=== PATIENT | female | born 1985 | race Two or more races ===

== ENCOUNTER 2017-07-16 18:24 | Emergency (ER) | payer OTHER | END 2017-07-16 20:00 | disposition home or self-care (01) | LOC: M ED 18:24 | DX: K52.9 Noninfective gastroenteritis and colitis, unspecified (principal); H69.90 Unspecified Eustachian tube disorder, unspecified ear; F32.9 Major depressive disorder, single episode, unspecified; F17.200 Nicotine dependence, unspecified, uncomplicated; Z79.899 Other long term (current) drug therapy; Z88.5 Allergy status to narcotic agent | CPT/HCPCS: 99283 ==

== ENCOUNTER → 2017-11-22 | Outpatient (REF) | payer OTHER ==
[2017-11-22 20:01] LABS: CHLAMYDIA DNA AMPLIFICATION NEGATIVE (NEGATIVE); GC DNA AMPLIFICATION NEGATIVE (NEGATIVE)
[2017-11-26 14:16] LABS: HPV HYBRID CAPTURE II Negative (Negative)
== END ==
LOC: M LAB REF 16:54
DX: Z11.3 Encounter for screening for infections with a predominantly sexual mode of transmission (principal)

== ENCOUNTER → 2017-12-19 | Outpatient (CLI) | payer OTHER | LOC: M RAD 14:56 | DX: N88.8 Other specified noninflammatory disorders of cervix uteri (principal); R10.2 Pelvic and perineal pain | CPT/HCPCS: 76856 ==

== ENCOUNTER → 2018-06-06 | Outpatient (CLI) | payer OTHER ==
[~2018-06-06] MED LIST: AUGM875T28 PO; BUPR300T34; SUBO8MIS; ZOFR4TAB14 PO
--- NOTE | 2018-06-06 17:39 | REP ---
Clinical: Pelvic pain. Ovarian cyst. Comparison: 12/19/2017 Technique: Transabdominal pelvic ultrasound followed by transvaginal examination for better evaluation of the endometrium and adnexa with color Doppler evaluation of the ovaries. Findings: Bladder is collapsed. Heterogeneous anteverted uterus measures 7.4 x 3.8 x 4.9 cm and includes 2.4 cm right anterior subserosal fibroid as well as subcentimeter Nabothian cysts. The endometrial complex measures 12.5 mm thickness. Bilateral ovaries are normal in vascularity without evidence for torsion. Right ovary measures 5.3 x 3.0 x 2.8 cm with 3.8 cm simple cyst and multiple follicles ; R I = 0.67 . Left ovary measures 4.2 x 3.2 x 6.0 cm with 4.2 cm and 2.4 cm cysts and multiple follicles ; R I = 0.71 . Small amount of pelvic free fluid is nonspecific and likely physiologic. No adnexal mass lesion identified. Impression: 1. 2.4 cm subserosal uterine fibroid unchanged from prior examination . 2. Prominent bilateral ovarian cysts and similar in appearance to prior examination although possibly minimally enlarged. As noted on prior examination chronic hydrosalpinx is within differential diagnosis. Contrast enhanced CT of the abdomen and pelvis or pelvic MRI may be warranted if follow-up pelvic ultrasound in 4-6 weeks is unchanged. Electronically Signed by Heber Rey MD 06/06/2018 05:30 P
== END ==
LOC: M RAD 14:18
PROVIDERS: ATTEND Physician Assistant Medical
DX: N83.201 Unspecified ovarian cyst, right side (principal); N83.202 Unspecified ovarian cyst, left side; D25.2 Subserosal leiomyoma of uterus

== ENCOUNTER 2019-02-10 18:54 | Emergency (ER) | payer OTHER ==
[~2019-02-10] VITALS: Ht 162.6 cm; Wt 84.1 kg
[2019-02-10 18:54] VITALS: BP 124/75
[~2019-02-10 18:54] MED LIST changes: -BUPR300T34; +BUPR300T92
[2019-02-10] MEDS ORDERED: BUPR8SUB (19:55)
[2019-02-10] MEDS ORDERED: CEFD1CAP8 (19:55)
[2019-02-10] MEDS ORDERED: ALL10TAB29 (19:55)
[2019-02-10] MEDS ORDERED: PSEUDOEPHEDRINE 30 MG TAB PO STA (20:04)
[2019-02-10] MEDS ORDERED: PSEU120T19 PO (20:10)
[2019-02-10] MEDS ORDERED: FLON1SPR NARES (20:10)
[2019-02-10] MEDS ORDERED: IBUP-1022 PO (20:10)
[2019-02-10] MEDS ORDERED: IBUPROFEN 600 MG TAB PO ONE (20:15)
== END 2019-02-10 20:26 | disposition home or self-care (01) ==
LOC: M ED 18:54
DX: H65.01 Acute serous otitis media, right ear (principal); J06.9 Acute upper respiratory infection, unspecified; Z88.5 Allergy status to narcotic agent; Z79.899 Other long term (current) drug therapy; Z79.2 Long term (current) use of antibiotics

== ENCOUNTER → 2019-05-26 | Outpatient (REF) | payer OTHER ==
[~2019-05-26] MED LIST changes: +ALL10TAB29; +BUPR300T34; -BUPR300T92; +BUPR8SUB; +CEFD1CAP8; +FLON1SPR NARES; +IBUP-1022 PO; +PSEU120T19 PO
== END ==
LOC: M LAB REF 19:31
PROVIDERS: ATTEND Physician Assistant Medical
DX: L02.91 Cutaneous abscess, unspecified (principal)

== ENCOUNTER 2021-02-08 17:19 | Emergency (ER) | payer OTHER ==
[~2021-02-08] VITALS: Ht 162.6 cm; Wt 71.8 kg
[2021-02-08 17:19] VITALS: BP 134/84
[~2021-02-08 17:19] MED LIST changes: -ALL10TAB29; -BUPR300T34; +BUPR300T92; +CETI-24
== END 2021-02-09 05:05 | disposition left against medical advice (07) ==
LOC: M ED 17:19
DX: Z53.21 Procedure and treatment not carried out due to patient leaving prior to being seen by health care provider (principal)

== ENCOUNTER → 2021-02-21 | Outpatient (CLI) | payer OTHER ==
--- NOTE | 2021-02-21 16:29 | REP ---
INDICATION: LOCAL INFECTION OF THE SKIN AND SUBCUTANEOUS TISSUE, UNSP. COMPARISON: Comparison right hand radiographs are from May 03, 2016. Comparison left hand radiographs are from November 13, 2014. TECHNIQUE: AP and lateral views of each hand are provided. Four views total. FINDINGS: AP and lateral views of each hand demonstrate diffuse soft tissue swelling dorsally over the metacarpals on the right extending along the proximal phalanges of all 5 digits. Joint spaces are preserved on the right. No fracture, opaque foreign body, or subluxation is noted on the right. On the left, there is a screw plate fixation device across the dorsal aspect of the 5th metacarpal. No acute bony abnormality is seen. There is dorsal soft tissue swelling over the metacarpals and extending into the digits. There is some soft tissue irregularity on the lateral film dorsally over the metacarpals which may reflect scarring. IMPRESSION: Diffuse soft tissue swelling. No soft tissue gas is seen. Patient is post open reduction internal fixation of 5th metacarpal fracture with a screw plate fixation device. No bony erosive change. <Electronically signed by Den Dickerson > 02/21/21 [id number]
--- NOTE | 2021-02-21 16:31 | REP ---
INDICATION: LOCAL INFECTION OF THE SKIN AND SUBCUTANEOUS TISSUE, UNSP. COMPARISON: Comparison left foot series February 04, 2011. TECHNIQUE: AP and lateral views of the left and AP and lateral views of the right foot are provided. Four views total. FINDINGS: AP and lateral views of the left foot demonstrate soft tissue swelling dorsally over the forefoot. Joint spaces are preserved. Overall mineralization pattern is normal. No soft tissue gas or foreign body is seen. No fracture is noted. There is a small left-sided Achilles calcaneal spur. AP and lateral views of the right foot demonstrate mild soft tissue swelling over the midfoot and forefoot. There is Achilles calcaneal spurring on the right. Joint spaces are preserved. No soft tissue gas is seen. IMPRESSION: Soft tissue swelling. Heel spurs. No acute bony abnormality.. <Electronically signed by Den Dickerson > 02/21/21 [id number]
[2021-02-21 18:09] LABS: BASO % 0.6 % (0.0-1.0); EOS # 0.2 10^3/uL (0.0-0.5); HEMATOCRIT 44.4 % (36.0-47.0); HEMOGLOBIN 14.4 g/dl (12.0-15.5); LYMPH # 1.9 10^3/uL (1.5-5.0); LYMPH % 30.3 % (24.0-44.0); MEAN CORPUSCULAR HEMOGLOBIN 30.3 pg (27.0-33.0); MEAN CORPUSCULAR HGB CONC 32.4 g/dl (32.0-36.5); MEAN CORPUSCULAR VOLUME 93.5 fl (80.0-96.0); MONO # 0.4 10^3/uL (0.0-0.8); MONO % 6.4 % (2.0-8.0); NEUTROPHILS # 3.8 10^3/uL (1.5-8.5); NEUTROPHILS % 59.4 % (36.0-66.0); PLATELET COUNT, AUTOMATED 327 10^3/uL (150-450); RED BLOOD COUNT 4.75 10^6/uL (4.00-5.40); WHITE BLOOD COUNT 6.4 10^3/uL (4.0-10.0)
[2021-02-21 18:40] LABS: C REACTIVE PROTEIN QUANTITATIV 0.82 MG/DL (0.00-0.30); RHEUMATOID FACTOR QUANT < 10.0 IU/ML (<15.0)
[2021-02-21 20:38] LABS: ERYTHROCYTE SEDIMENTATION RATE 13 mm/hr (0-20)
== END ==
LOC: M PLAIMG 14:34 → M PLALAB 14:34
PROVIDERS: ATTEND Internal Medicine Infectious Disease
DX: L08.9 Local infection of the skin and subcutaneous tissue, unspecified (principal); M79.89 Other specified soft tissue disorders; B18.2 Chronic viral hepatitis C; I73.00 Raynaud's syndrome without gangrene; M77.31 Calcaneal spur, right foot; M77.32 Calcaneal spur, left foot

== ENCOUNTER 2021-05-03 11:36 | Emergency (ER) | payer OTHER ==
[~2021-05-03] VITALS: Ht 162.6 cm; Wt 68.6 kg
--- OUTSIDE RECORDS SUMMARY | 2021-05-03 11:44 | CCD ---
Author Author [facility] Organization [facility] Address Unknown Phone Unavailable Care Team Providers Care Photographer Scientific Name Role Phone Dimitrios Sparks Unavailable PROBLEMS Type Condition ICD9-CM Code [id number] Code Onset Dates Condition S tatus W/U Status Risk SNOMED Code Notes Problem Open wound of right thumb without damage to nail , initial encounter S61.001A Active confirmed 614362747 Problem Chronic hepatitis C without hepatic coma B18.2 Active confirmed 773360593 Problem Bilateral swelling of feet M79.89 Active confirmed 908803111 Problem Bilateral hand swelling M79.89 Active confirmed 315166316 Problem 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 Acti ve confirmed 822365032 Problem Marijuana use F12.90 Active confirmed 350264 004 Problem Depressive disorder F32.9 Active confirmed 08381073 Problem Raynaud's disease without gangrene I73.00 Activ e confirmed 730608296 ALLERGIES Allergen (clinical drug ingredient) Drug/Non Drug Allergy do cumented on EMR Reaction Allergy Type Onset Date Status codeine Codeine Sulfate([facility] Code:[address]-54) Unknown Drug Al lergy Active ENCOUNTERS from 1984 to 2021-02-22 Encounter Location Date Provider Diagnosis [facility] [place] [address] [facility] [phone] [place] [address] Feb, Dimitrios Sparks Chronic hepatitis C without hepatic coma B18.2 ; Raynaud's disease without gangrene I73.00 ; 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 ; Depressive disorder F32.9 ; Marijuana use F12.90 ; Toe infection L08.9 ; Tobacco abuse Z72.0 and Bilateral swelling of feet M79.89 IMMUNIZATIONS No Information SOCIAL HISTORY Tobacco Use: Social History Observation Description Date Details (start date - stop date) Current Smoker Sex Assigned At : Social History Observation Description Sex Assigned At Unknown Sexual Hx: Question Answer Notes Had sex in the last 12 months (vaginal, oral, or anal)? Yes LMP: 10/2019 Alcohol Screening: Question Answer Notes Did you have a drink containing alcohol in the past year? No Points 0 Interpretation Negative Tobacco Use: Question Answer Notes Are you a: current smoker Patient counseled on the dangers of tobacco use and urged to quit: 09/10/2016 How many cigarettes a day do you smoke? 11-20 Are you interested in quitting? Thinking about quitting Counseled the patient on smoking cessation, education provid ed 09/10/2016 REASON FOR REFERRAL No Information VITAL SIGNS Weight 156 lbs Feb, Weight-kg 70.76 kg Feb, Height 64 in Feb, BMI 26.77 kg/m2 Feb, Heart Rate 82 /min Feb, Respiratory Rate 18 /min Feb, Temperature 97.8 degrees Fahrenheit Feb, Oximetry 97% Feb, Blood pressure systolic 122 mm Hg Feb, Blood pressure diastolic 74 mm Hg Feb, MEDICATIONS Medication SIG (Take, Route, Frequency, Duration) Notes Start Da te End Date Status Subutex Active buPROPion HCl ER (XL) 150 MG TAKE ONE TABLET BY MOUTH ONCE DAILY Oral for 30 Active Epclusa 400-100 MG 1 tablet Orally Once a day for 28 day(s) Feb, Active PROCEDURES No Information RESULTS Component Value Reference Range C REACTIVE PROTEIN QUANTITATIV (At [facility] L ab) Reviewed date:02/21/2021 18:55:08 Interpretation: Performing Lab:[facility] [address] [place] [address] , ,[place] [address] C REACTIVE PROTEIN QUANTITATIV 0.82 0.00-0.30 RHEUMATOID FACTOR QUANT Reviewed date:02/21/2021 18:55:08 Interpretation: Performing Lab:[facility] [address] [facility] [address] , ,[place] [address] RHEUMATOID FACTOR QUANT < 10.0 <15.0 [facility] Foot, (Ap\Lat) Reviewed date:02/21/2021 18:55:08 Interpretation: Performing Lab:[facility],[address] ,[place] [address] [facility] Hand,(Pa\Lat) Reviewed date:02/21/2021 18:55:08 Interpretation: Performing Lab:[facility] [address] ,[place] [address] ERYTHROCYTE SEDIMENTATION RATE Reviewed date:02/22/2021 12:44:15 Interpretation: Performing Lab:[facility] [address] [facility] [address] , ,[place] [address] ERYTHROCYTE SEDIMENTATION RATE 13 0-[address] Reviewed date:02/22/2021 12:44:15 Interpretation: Performing Lab:[facility] [address] [facility] [address] , ,[place] [address] CBC with Auto Differential Reviewed date:02/22/2021 12:44:15 Interpretation: Performing Lab:[facility] [address] [facility] [address] , ,[place] [address] WHITE BLOOD COUNT 6.4 4.0-10.0 RED BLOOD COUNT 4.75 4.00-5.40 HEMOGLOBIN 14.4 12.0-15.5 HEMATOCRIT 44.4 36.0-47.0 MEAN CORPUSCULAR VOLUME 93.5 80.0-96.0 MEAN CORPUSCULAR HEMOGLOBIN 30.3 27.0-33.0 MEAN CORPUSCULAR HGB CONC 32.4 32.0-36.5 RED CELL DISTRIBUTION WIDTH 13.2 11.5-14.5 PLATELET COUNT, AUTOMATED 327 150-450 NEUTROPHILS % 59.4 36.0-66.0 LYMPH % 30.3 24.0-44.0 MONO % 6.4 2.0-8.0 EOS % 3.0 0.0-3.0 BASO % 0.6 0.0-1.0 IMMATURE GRANULOCYTE % 0.3 0-3.0 NUCLEATED RED BLOOD CELL % 0.0 0-0 NEUTROPHILS # 3.8 1.5-8.5 LYMPH # 1.9 1.5-5.0 MONO # 0.4 0.0-0.8 EOS # 0.2 0.0-0.5 BASO # 0.0 0.0-0.2 REASON FOR VISIT follow up MEDICAL (GENERAL) HISTORY Type Description Date Medical History depression Medical History opiate abuse (stopped Apr 2015) Medical History Hepatitis C positive Surgical History ovarian cyst 2009 Surgical History L hand surgical fixation 2013 Hospitalization History No Hospitalization history informati on Goals Section No Information Health Concerns No Information MEDICAL EQUIPMENT No Information MENTAL STATUS No Information FUNCTIONAL STATUS No Information ASSESSMENTS Encounter Date Diagnosis Assessment Notes Treatment Notes Treatm ent Clinical Notes Feb, Chronic hepatitis C without hepatic coma (ICD-10 - B18.2) Not vaccinated for HepA/B ? Or unsure Avoid alcohol, tylenol and iron takes motrin for pain Patient will be treated with Epclusa 1 tablet daily for 12 weeks she will take at bedtime she understands side effect include nausea headache fatigue. She will take with or without meals. 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 She has bilateral hand and feet swelling with ulcerations. 4 years ago she had an ulcer on the left second thumb and lost part of the thumb. Feb, Intravenous drug abuse in remission (ICD-10 - F1 9.11) Feb, Depressive disorder (ICD-10 - F32.9) She sees community [facility] , she will do a walkin for counseling Feb, Marijuana use (ICD-10 - F12.90) Feb, Toe infection (ICD-10 - L08.9) Rule out osteomyelitis of the right second toe x-ray was obtained culture wound will be called in 48 hours if she needs an antibiotic., Feb, Tobacco abuse (ICD-10 - Z72.0) Smokes a pack a day last year about 2 days sometimes more. She was encouraged to cut back on smoking due to significant Raynaud's/Buerger's disease. Feb, Bilateral swelling of feet (ICD-10 - M79.89) PLAN OF TREATMENT Medication Medication Name Sig Start Date Stop Date Epclusa 400-100 MG 1 tablet Orally Once a day for 28 day(s) 07 S 2020 Treatment Notes Assessment Notes Clinical Notes Chronic hepatitis C without hepatic coma Not vaccinated for HepA/B ? Or unsureAvoid alcohol, tylenol and iron takes motrin for painPatient will be treated with Epclusa 1 tablet daily for 12 weeks she will take at bedtime she understands side effect include nausea headache fatigue. She will take with or without meals.[facility] report was obtained there was no documentation of previous vaccination Raynaud's disease without gangrene Patie nt has a diagnosis of Raynaud's versus Buerger's syndrome. She has bilateral hand and feet swelling with ulcerations. 4 years ago she had an ulcer on the left second thumb and lost part of the thumb. Depressive disorder She sees [facility] , she will do a walkin for counseling Toe infection Rule out osteomyelit is of the right second toe x-ray was obtained culture wound will be called in 48 hours if she needs an antibiotic., Tobacco abuse Smokes a pack a day last year about 2 days sometimes more. She was encouraged to cut back on smoking due to significant Raynaud's/Buerger's disease. Treatment Notes Test Name Order Date HEPATITIS C QUANT BY PCR 2021-02-21 HEPATITIS C GENOTYPE 2021-02-21 HEPATITIS C FIBROSURE [id number] 2021-02-21 RICHARD TITER & PATTERN 2021-02-21 HEPATITIS B CORE ANTIBODY IGG 2021-02-21 CYCLIC CITRULLINATED PEPTIDE 2021-02-21 HEPATITIS A IgG 2021-02-21 Next Appt Details 4 Weeks Reason: Provider Name:Radhajl Sparks, 5 01:30:00 PM, [facility] [facility], , [place], [address], Insurance Providers Payer Name Payer Address Payer Phone Insured Name Patient Relati onship to Insured Coverage Start Date Coverage End Date [facility] [address] [facility] [phone] [place] self
--- OUTSIDE RECORDS SUMMARY | 2021-05-03 11:44 | CCD ---
Author Author [facility] Organization [facility] Address Unknown Phone Unavailable Care Team Providers Care Central Service Supply Distributor Name Role Phone Leonidas Giron MD Unavailable Unavailable Leonidas Giron MD Unavailable Unavailable Leonidas Giron MD Unavailable Unavailable Leonidas Giron MD Unavailable Unavailable Leonidas Giron MD Unavailable Unavailable Leonidas Giron MD Unavailable Unavailable Leonidas Giron MD Unavailable Unavailable Leonidas Giron MD Unavailable Unavailable Leonidas Giron MD Unavailable Unavailable Leonidas Giron MD Unavailable Unavailable Leonidas Giron MD Unavailable Unavailable Leonidas Giron MD Unavailable Unavailable Leonidas Giron MD Unavailable Unavailable Leonidas Giron MD Unavailable Unavailable Leonidas Giron MD Unavailable Unavailable Leonidas Giron MD Unavailable Unavailable Leonidas Giron MD Unavailable Unavailable Leonidas Giron MD Unavailable Unavailable Leonidas Giron MD Unavailable Unavailable Leonidas Giron MD Unavailable Unavailable Leonidas Giron MD Unavailable Unavailable Leonidas Giron MD Unavailable Unavailable Leonidas Giron MD Unavailable Unavailable Leonidas Giron MD Unavailable Unavailable Leonidas Giron MD Unavailable Unavailable Leonidas Giron MD Unavailable Unavailable Leonidas Giron MD Unavailable Unavailable Leonidas Giron MD Unavailable Unavailable Leonidas Giron MD Unavailable Unavailable Leonidas Giron MD Unavailable Unavailable Leonidas Giron MD Unavailable Unavailable Leonidas Giron MD Unavailable Unavailable Leonidas Giron MD Unavailable Unavailable Leonidas Giron MD Unavailable Unavailable Leonidas Giron MD Unavailable Unavailable Leonidas Giron MD Unavailable Unavailable Leonidas Giron MD Unavailable Unavailable Leonidas Giron MD Unavailable Unavailable Leonidas Giron MD Unavailable Unavailable Leonidas Giron MD Unavailable Unavailable Leonidas Giron MD Unavailable Unavailable Leonidas Giron MD Unavailable Unavailable Leonidas Giron MD Unavailable Unavailable GironLeonidas MD Unavailable Unavailable GironLeonidas MD Unavailable Unavailable GironLeonidas MD Unavailable Unavailable Giron, Leonidas Granados MD Unavailable Unavailable Giron, Leonidas Granados MD Unavailable Unavailable GironLeonidas MD Unavailable Unavailable GironLeonidsa MD Unavailable Unavailable Leonidas Giron MD Unavailable Unavailable Leonidas Giron MD Unavailable Unavailable Leonidas Giron MD Unavailable Unavailable GironLeonidas MD Unavailable Unavailable GironLeonidas MD Unavailable Unavailable Giron, Leonidas Granados MD Unavailable Unavailable Giron, Leonidas Granados MD Unavailable Unavailable Giron, Leonidas Granados MD Unavailable Unavailable Giron, Leonidas Granados MD Unavailable Unavailable GironLeonidas MD Unavailable Unavailable Leonidas Giron MD Unavailable Unavailable Giron, Leonidas Granados MD Unavailable Unavailable GironLeonidas MD Unavailable Unavailable Giron, Leonidas Granados MD Unavailable Unavailable Giron, Leonidas Granados MD Unavailable Unavailable GironLeonidas MD Unavailable Unavailable Giron, Leonidas Granados MD Unavailable Unavailable Leonidas Giron MD Unavailable Unavailable Leonidas Giron MD Unavailable Unavailable Leonidas Giron MD Unavailable Unavailable Leonidas Giron MD Unavailable Unavailable Leonidas Giron MD Unavailable Unavailable GironLeonidas MD Unavailable Unavailable GironLeonidas MD Unavailable Unavailable GironLeonidas MD Unavailable Unavailable GironLeonidas MD Unavailable Unavailable Leonidas Giron MD Unavailable Unavailable Leonidas Giron MD Unavailable Unavailable Leonidas Giron MD Unavailable Unavailable Leonidas Giron MD Unavailable Unavailable Leonidas Giron MD Unavailable Unavailable Leonidas Giron MD Unavailable Unavailable Leonidas Giron MD Unavailable Unavailable Leonidas Giron MD Unavailable Unavailable Leonidas Giron MD Unavailable Unavailable Leonidas Giron MD Unavailable Unavailable Leonidas Giron MD Unavailable Unavailable Leonidas Giron MD Unavailable Unavailable Leonidas Giron MD Unavailable Unavailable Leonidas Giron MD Unavailable Unavailable GironLeonidas MD Unavailable Unavailable GironLeonidas MD Unavailable Unavailable GironLeonidas MD Unavailable Unavailable Emily, Katrina Unavailable Unavailable Emily, Katrina Unavailable Unavailable Emily, Katrina Unavailable Unavailable Emily, Katrina Unavailable Unavailable Emily, Katrina Unavailable Unavailable Emily, Katrina Unavailable Unavailable Emily, Katrina Unavailable Unavailable Emily, Katrina Unavailable Unavailable Emily, Katrina Unavailable Unavailable Emily, Katrina Unavailable Unavailable Emily, Katrina Unavailable Unavailable Emily, Katrina Unavailable Unavailable Emily, Katrina Unavailable Unavailable Emily, Katrina Unavailable Unavailable Emily, Katrina Unavailable Unavailable Emily, Katrina Unavailable Unavailable Emily, Katrina Unavailable Unavailable Emily, Katrina Unavailable Unavailable Emily, Katrina Unavailable Unavailable Emily, Katrina Unavailable Unavailable Emily, Katrina Unavailable Unavailable Emily, Katrina Unavailable Unavailable Emily, Katrina Unavailable Unavailable Emily, Katrina Unavailable Unavailable Emily, Katrina Unavailable Unavailable Emily, Katrina Unavailable Unavailable Emily, Katrina Unavailable Unavailable Jose A RODRIGUEZ MD Unavailable Unavailable Jose A RODRIGUEZ MD Unavailable Unavailable Jose A RODRIGUEZ MD Unavailable Unavailable Jose A RODRIGUEZ MD Unavailable Unavailable Jose A RODRIGUEZ MD Unavailable Unavailable Jose A RODRIGUEZ MD Unavailable Unavailable Jose A RODRIGUEZ MD Unavailable Unavailable Jose A RODRIGUEZ MD Unavailable Unavailable Jose A RODRIGUEZ MD Unavailable Unavailable Jose A RODRIGUEZ MD Unavailable Unavailable Jose A RODRIGUEZ MD Unavailable Unavailable Jose A RODRIGUEZ MD Unavailable Unavailable Jose A RODRIGUEZ MD Unavailable Unavailable Jose A RODRIGUEZ MD Unavailable Unavailable Jose A RODRIGUEZ MD Unavailable Unavailable Jose A RODRIGUEZ MD Unavailable Unavailable Jose A RODRIGUEZ MD Unavailable Unavailable Jose A RODRIGUEZ MD Unavailable Unavailable Jose A RODRIGUEZ MD Unavailable Unavailable Jose A RODRIGUEZ MD Unavailable Unavailable Jose A RODRIGUEZ MD Unavailable Unavailable Jose A RODRIGUEZ MD Unavailable Unavailable Jose A RODRIGUEZ MD Unavailable Unavailable Jose A RODRIGUEZ MD Unavailable Unavailable Jose A RODRIGUEZ MD Unavailable Unavailable Jose A RODRIGUEZ MD Unavailable Unavailable Jose A RODRIGUEZ MD Unavailable Unavailable Jose A RODRIGUEZ MD Unavailable Unavailable Jose A RODRIGUEZ MD Unavailable Unavailable Jose A RODRIGUEZ MD Unavailable Unavailable Jose A RODRIGUEZ MD Unavailable Unavailable Jose A RODRIGUEZ MD Unavailable Unavailable Jose A RODRIGUEZ MD Unavailable Unavailable Jose A RODRIGUEZ MD Unavailable Unavailable Jose A RODRIGUEZ MD Unavailable Unavailable Jose A RODRIGUEZ MD Unavailable Unavailable Jose A RODRIGUEZ MD Unavailable Unavailable Jose A RODRIGUEZ MD Unavailable Unavailable Jose A RODRIGUEZ MD Unavailable Unavailable Jose A RODRIGUEZ MD Unavailable Unavailable Jose A RODRIGUEZ MD Unavailable Unavailable Jose A RODRIGUEZ MD Unavailable Unavailable Jose A RODRIGUEZ MD Unavailable Unavailable Jose A RODRIGUEZ MD Unavailable Unavailable Jose A RODRIGUEZ MD Unavailable Unavailable Jose A RODRIGUEZ MD Unavailable Unavailable MICHAEL, GNIETTE MD Unavailable Unavailable MICHAEL, GINETTE MD Unavailable Unavailable MICHAEL, GINETTE MD Unavailable Unavailable MICHAEL, GINETTE MD Unavailable Unavailable MICHAEL, GINETTE MD Unavailable Unavailable MICHAEL, GINETTE MD Unavailable Unavailable MICHAEL, GINETTE MD Unavailable Unavailable MICHAEL, GINETTE MD Unavailable Unavailable MICHAEL, GINETTE MD Unavailable Unavailable MICHAEL, GINETTE MD Unavailable Unavailable MICHAEL, GINETTE MD Unavailable Unavailable MICHAEL, GINETTE MD Unavailable Unavailable MICHAEL, GINETTE MD Unavailable Unavailable MICHAEL, GINETTE MD Unavailable Unavailable MICHAEL, GINETTE MD Unavailable Unavailable MICHAEL, GINETTE MD Unavailable Unavailable MICHAEL, GINETTE MD Unavailable Unavailable MICHAEL, GINETTE MD Unavailable Unavailable MICHAEL, GINETTE MD Unavailable Unavailable MICHAEL, GINETTE MD Unavailable Unavailable Re-disclosure Warning The records that you are about to access may contain information from federally-assisted alcohol or drug abuse programs. If such information is present, then the following federally mandated warning applies: This information has been disclosed to you from records protected by federal confidentiality rules (42 CFR part 2). The federal rules prohibit you from making any further disclosure of this information unless further disclosure is expressly permitted by the written consent of the person to whom it pertains or as otherwise permitted by 42 CFR part 2. A general authorization for the release of medical or other information is NOT sufficient for this purpose. The Federal rules restrict any use of the information to criminally investigate or prosecute any alcohol or drug abuse patient.The records that you are about to access may contain highly sensitive health information, the redisclosure of which is protected by Article 27-F of the [facility] Public Health law. If you continue you may have access to information: Regarding HIV / AIDS; Provided by facilities licensed or operated by the [facility] Office of Mental Health; or Provided by the [facility] Office for People With Developmental Disabilities. If such information is present, then the following [facility] mandated warning applies: This information has been disclosed to you from confidential records which are protected by state law. State law prohibits you from making any further disclosure of this information without the specific written consent of the person to whom it pertains, or as otherwise permitted by law. Any unauthorized further disclosure in violation of state law may result in a fine or [place] health [facility] sentence or both. A general authorization for the release of medical or other information is NOT sufficient authorization for further disc losure. Family History Family Member Name Family Member Gender Family Member Status Date o f Status Description Data Source(s) Unknown Unknown Problem [facility] ([facility], ) Encounters Encounter Providers Location Date Indications Data Source(s ) Outpatient Attender: ERIN RODRIGUEZ MD 03/28/2021 11:15: 00 AM EDT [facility] Alysa Diaz MD: [address] [place] [address], Ph. Attender: Alysa Diaz [facility] Medical 03/08/2021 12:00:00 AM EDT [place] ([facility]) Unknown [address] [facility] [id number] 02/28/2021 12:00:00 AM EDT eCW1 ([facility]) Outpatient [address] [facility] [id number] 02/21/2021 12:00:00 AM EDT eCW1 ([facility]) Unknown [address] [facility] [address] [address] 01/10/2021 12:00:00 AM EDT eCW1 ([facility]) Unknown [address] [facility] [address] [id number] 12/27/2020 12:00:00 AM EDT eCW1 ([facility]) Unknown [address] [facility] [address] [address] 12/06/2020 12:00:00 AM EDT eCW1 ([facility]) Darwin Giron MD: [address] [place] [address], Ph. Attender: Darwin Giron [facility] 11/10/2020 12:00:00 AM EDT JAYLA ([facility]) Darwin Giron MD: [address] [place] [address], Ph. Attender: Darwin Giron [facility] 11/10/2020 12:00:00 AM EDT [place] ([facility]) Alysa Diaz MD: [address], [place] [address], Ph. Attender: Alysa Diaz [facility] Medical 11/08/2020 12:00:00 AM EDT [place] ([facility]) Alysa Diaz MD: [address], [place] [address], Ph. Attender: Alysa Diaz [facility] Medical 11/08/2020 12:00:00 AM EDT [place] ([facility]) Alysa Diaz MD: [address], [place] [address], Ph. Attender: Alysa Diaz [facility] Medical 11/08/2020 12:00:00 AM EDT [place] ([facility]) Medications Medication Brand Name Start Date Product Form Dose Route Admi nistrative Instructions Pharmacy Instructions Status Indications Reaction Description Data Source(s) Sulfamethoxazole 800 MG / Trimethoprim 1 60 MG Oral Tablet [Bactrim] Bactrim DS 800-160 MG Bactrim DS 800-160 MG 02/23/2021 12:00:00 AM EDT 1.0 {table t} active Bactrim DS 800-160 MG eCW1 ( [facility]) Epclusa 400-100 MG Epclusa 400-100 MG 02/21/2021 12:00:00 AM EDT 1.0 {tablet} active Epclusa 400-100 MG e CW1 ([facility]) Epclusa 400-100 MG Epclusa 400-100 MG 02/21/2021 12:00:00 AM EDT 1.0 {tablet} active Epclusa 400-100 MG e CW1 ([facility]) Ondansetron 4 MG Oral Tablet ondansetron HCl 4 mg tablet TAKE 1-2 TABLETS BY MOUTH ONCE DAILY NEEDED ondansetron HCl 4 mg tablet TAKE 1-2 TAB LETS BY MOUTH ONCE DAILY NEEDED completed ondansetron 4 MG Oral Tablet JAYLA ([facility]) 24 HR Bupropion Hydrochloride 150 MG Ext ended Release Oral Tablet bupropion HCl XL 150 mg 24 hr tablet, extended release TAKE ONE TABLET BY MOUTH ONCE DAILY bupropion HCl XL 150 mg 24 hr tablet, extended release TAKE ONE TABLET BY MOUTH ONCE DAILY completed 24 HR bupropion hydrochloride 150 MG Extended Release Oral Tablet [place] ([facility]) Ondansetron 4 MG Oral Tablet ondansetron HCl 4 mg tablet TAKE 1-2 TABLETS BY MOUTH ONCE DAILY NEEDED ondansetron HCl 4 mg tablet TAKE 1-2 TAB LETS BY MOUTH ONCE DAILY NEEDED completed ondansetron 4 MG Oral Tablet [place] ([facility]) 24 HR Bupropion Hydrochloride 150 MG Ext ended Release Oral Tablet bupropion HCl XL 150 mg 24 hr tablet, extended release TAKE ONE TABLET BY MOUTH ONCE DAILY bupropion HCl XL 150 mg 24 hr tablet, extended release TAKE ONE TABLET BY MOUTH ONCE DAILY completed 24 HR bupropion hydrochloride 150 MG Extended Release Oral Tablet [place] ([facility]) Sulfamethoxazole 800 MG / Trimethoprim 1 60 MG Oral Tablet sulfamethoxazole 800 mg-trimethoprim 160 mg tablet TAKE ONE TABLET BY MOUTH TWICE DAILY FOR 14 DAYS sulfamethoxazole 800 mg-trimethoprim 160 mg tablet TAKE ONE TABLET BY MOUTH TWICE DAILY FOR 14 DAYS completed sulfamethoxazole 800 MG / trimethoprim 160 MG Oral Tablet [place] ([facility]) 24 HR Bupropion Hydrochloride 150 MG Ext ended Release Oral Tablet bupropion HCl XL 150 mg 24 hr tablet, extended release TAKE ONE TABLET BY MOUTH ONCE DAILY bupropion HCl XL 150 mg 24 hr tablet, extended release TAKE ONE TABLET BY MOUTH ONCE DAILY completed 24 HR bupropion hydrochloride 150 MG Extended Release Oral Tablet [place]LA ([facility]) Sulfamethoxazole 800 MG / Trimethoprim 1 60 MG Oral Tablet sulfamethoxazole 800 mg-trimethoprim 160 mg tablet TAKE ONE TABLET BY MOUTH TWICE DAILY FOR 14 DAYS sulfamethoxazole 800 mg-trimethoprim 160 mg tablet TAKE ONE TABLET BY MOUTH TWICE DAILY FOR 14 DAYS completed sulfamethoxazole 800 MG / trimethoprim 160 MG Oral Tablet [place] ([facility]) Ondansetron 4 MG Oral Tablet ondansetron HCl 4 mg tablet TAKE 1-2 TABLETS BY MOUTH ONCE DAILY NEEDED ondansetron HCl 4 mg tablet TAKE 1-2 TAB LETS BY MOUTH ONCE DAILY NEEDED completed ondansetron 4 MG Oral Tablet [place] ([facility]) Insurance Providers Payer name Policy type / Coverage type Policy ID Covered constitution party ID Covered constitution party's relationship to mckeon Policy Mckeon Plan Information [employer] M[employer]O [id number] SP [id number] [employer] COMM[employer]ITY [employer]AN MCDO [id number] SP [id number] [employer] COMMUNITY PLAN MCDO [id number] SP [id number] [facility] I [id number] Self [id number] MEDICAID [facility] [id number] [facility] O [id number] S [id number] [employer] MCDO [id number] SP [id number] [facility] COMMUNITY PLAN MCDO [id number] SP [id number] [facility] COMMUNITY PLAN MEDICAID [id number] MEDICAID [id number] SP [id number] SELF PAY UNAVAILABLE SP UNAVAILA BLE [facility] Health Maintenance Organization (HMO) [id number] Self [id number] [facility] MEDICAID [id number] S [id number] [employer] MCDO [id number] SP [id number] [facility] COMMUNITY PLAN [id number] Problems, Conditions, and Diagnoses Code Display Name Description Problem Type Effective Dates Data Source(s) 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 NON-PRS CHRONIC ULCER OTH PRT L FOOT LIMITED TO BR Diagnosis 03/28/2021 11:15:00 AM [facility] L97.511 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 NON-PRS CHRONIC ULCER OTH PRT R FOOT LIMITED TO BRKDWN SKIN Diagnosis 03/28/2021 11:15:00 AM [facility] [id number] Nicotine dependence Nicotine Dependence Problem 0 [facility] I73.00 [id number] Raynaud's disease without gangrene Proble m 02/21/2021 12:00:00 AM EDT eCW1 ([facility]) F32.9 [id number] Depressive disorder Problem 02/21/2021 12:00 :00 AM EDT eCW1 ([facility]) F12.90 [id number] Marijuana use Problem 02/21/2021 12:00:00 AM EDT eCW1 ([facility]) F19.11 [id number] Intravenous drug abuse in remission Probl em 02/21/2021 12:00:00 AM EDT eCW1 ([facility]) M79.89 [id number] Bilateral hand swelling Problem 02/21/2021 1 2:00:00 AM EDT eCW1 ([facility]) M79.89 [id number] Bilateral swelling of feet Problem 12:00:00 AM EDT eCW1 ([facility]) B18.2 [id number] Chronic hepatitis C without hepatic coma Problem 12/13/2020 12:00:00 AM EDT eCW1 ([facility]) 12803221 Vitamin D deficiency Vitamin D Deficiency Problem 12/05/2020 12:00:00 AM EDT [place] ([facility]) [id number] Viral hepatitis C Viral Hepatitis C Problem 11/15/2020 12:00:00 AM EDT [place] ([facility]) [id number] Raynaud's disease Raynaud's Disease Problem 11/08 12:00:00 AM EDT [place] ([facility] er) [id number] Raynaud's disease Raynaud's Disease Problem 11/08 12:00:00 AM EDT [place] ([facility] er) 39908273 Type B viral hepatitis Type B Viral Hepatitis Problem 11/08/2020 12:00:00 AM EDT [place] ([facility] er) [id number] Raynaud's disease Raynaud's Disease Problem 11/08 12:00:00 AM EDT [place] ([facility] er) 45365412 Type B viral hepatitis Type B Viral Hepatitis Problem 11/08/2020 12:00:00 AM EDT [place] ([facility]) [id number] Skin lesion in drug addict Skin Lesion in Drug Addict Problem 11/07/2020 12:00:00 AM EDT [place] ([facility]) [id number] Addiction Addiction Problem 11/07/2020 12:00:00 AM ED T [place] ([facility]) 333474598 Skin lesion in drug addict Skin Lesion in Drug Addict Problem 11/07/2020 12:00:00 AM EDT [place] ([facility]) 25584046 Addiction Addiction Problem 11/07/2020 12:00:00 AM ED T [place] ([facility]) 996510050 Skin lesion in drug addict Skin Lesion in Drug Addict Problem 11/07/2020 12:00:00 AM EDT [place] ([facility]) 52132464 Addiction Addiction Problem 11/07/2020 12:00:00 AM ED T [place] ([facility]) Surgeries/Procedures No Information Results ID Date Data Source CBC with Auto Differential 02/21/2021 12:00:00 AM EDT W1 ( [facility]) Name Value Range Interpretation Code Description Data Christin rce(s) Supporting Document(s) 6.4 4.0-10.0 WHITE BLOOD COUNT eCW1 ([facility]) 14.4 12.0-15.5 HEMOGLOBIN eCW1 ([facility] hospital) 4.75 4.00-5.40 RED BLOOD COUNT eCW1 ([facility]) 44.4 36.0-47.0 HEMATOCRIT eCW1 (Critical access hospital) 93.5 80.0-96.0 MEAN CORPUSCULAR VOLUME e CW1 ([facility]) 30.3 27.0-33.0 MEAN CORPUSCULAR HEMOGLOB IN eCW1 ([facility]) 13.2 11.5-14.5 RED CELL DISTRIBUTION WID TH eCW1 ([facility]) 327 150-450 PLATELET COUNT, AUTOMATED eCW1 ([facility]) 32.4 32.0-36.5 MEAN CORPUSCULAR HGB CONC eCW1 ([facility]) 6.4 2.0-8.0 MONO % eCW1 ([facility]) 30.3 24.0-44.0 LYMPH % eCW1 ([facility]) 59.4 36.0-66.0 NEUTROPHILS % eCW1 ([facility]) 3.0 0.0-3.0 EOS % eCW1 ([facility]) 0.3 0-3.0 IMMATURE GRANULOCYTE % eCW1 (Counts include [facility] beds at the [facility]) 0.6 0.0-1.0 BASO % eCW1 ([facility]) 3.8 1.5-8.5 NEUTROPHILS # eCW1 ([facility]) 0.0 0-0 NUCLEATED RED BLOOD CELL % eCW 1 ([facility]) 1.9 1.5-5.0 LYMPH # eCW1 ([facility]) 0.0 0.0-0.2 BASO # eCW1 ([facility]) 0.4 0.0-0.8 MONO # eCW1 ([facility]) 0.2 0.0-0.5 EOS # eCW1 ([facility]) ID Date Data Source WOUND CULTURE AND GRAM ST 02/21/2021 12:00:00 AM EDT eCW1 (Counts include 234 beds at the [facility]) Name Value Range Interpretation Code Description Data Christin rce(s) Supporting Document(s) WOUND CULTURE AND GRAM ST eCW1 ([facility]) ID Date Data Source ERYTHROCYTE SEDIMENTATION RATE 02/21/2021 12:00:00 AM EDT eC W1 ([facility]) Name Value Range Interpretation Code Description Data Christin rce(s) Supporting Document(s) 13 0-20 ERYTHROCYTE SEDIMENTATION RATE W1 ([facility]) ID Date Data Source [facility] Hand,(Pa\Lat) 02/21/2021 12:00:00 AM EDT eCW1 ([facility]) Name Value Range Interpretation Code Description Data Christin rce(s) Supporting Document(s) [facility] Hand,(Pa\Lat) eCW1 ([facility]) ID Date Data Source [facility] Foot, (Ap\Lat) 02/21/2021 12:00:00 AM EDT eCW1 ([facility]) Name Value Range Interpretation Code Description Data Christin rce(s) Supporting Document(s) [facility] Foot, (Ap\Lat) eCW1 ([facility]) ID Date Data Source RHEUMATOID FACTOR QUANT 02/21/2021 12:00:00 AM EDT eCW1 ([facility]) Name Value Range Interpretation Code Description Data Christin rce(s) Supporting Document(s) < 10.0 <15.0 RHEUMATOID FACTOR QUANT eCW1 ( [facility]) ID Date Data Source C REACTIVE PROTEIN QUANTITATIV (At [facility] Lab) 02/21/2021 12:00 :00 AM EDT eCW1 ([facility]) Name Value Range Interpretation Code Description Data Christin rce(s) Supporting Document(s) 0.82 0.00-0.30 C REACTIVE PROTEIN QUANTI TATIV eCW1 ([facility]) ID Date Data Source [id number] 11/10/2020 01:47:00 PM EDT [facility]) Name Value Range Interpretation Code Description Data Christin rce(s) Supporting Document(s) Reagin Ab [Presence] in Serum by RPR non-reactive non-reactive RPR (DX) W/refl Titer and Confirmatory Testing [facility]) ID Date Data Source [id number] 11/10/2020 01:47:00 PM EDT [facility]) Name Value Range Interpretation Code Description Data Christin rce(s) Supporting Document(s) Hemoglobin A1c/Hemoglobin.total in Blood 4.9 %_of_total_HGB <5.7 Hemoglobin a1C [facility]) ID Date Data Source [id number] 11/10/2020 01:47:00 PM EDT [facility]) Name Value Range Interpretation Code Description Data Christin rce(s) Supporting Document(s) Calcidiol [Mass/volume] in Serum or Plasma 19 NG/mL 30-100 Below low normal Vitamin D,25-Oh,total,ia [facility]) ID Date Data Source [id number] 11/10/2020 01:47:00 PM EDT [facility]) Name Value Range Interpretation Code Description Data Christin rce(s) Supporting Document(s) Thyrotropin [Units/volume] in Serum or Plasma 1.17 mIU/L Tsh [facility]) ID Date Data Source [id number] 11/10/2020 01:47:00 PM EDT [facility]) Name Value Range Interpretation Code Description Data Christin rce(s) Supporting Document(s) Hepatitis C virus RNA [log units/volume] (viral load) in Serum or Plasma by Probe and target amplification method 3.09 log_IU/mL not detected Ab ove high normal HCV RNA, Quantitative Real Time PCR [place] ([facility]) Hepatitis C virus RNA [Units/volume] (vi ral load) in Serum or Plasma by Probe and target amplification method 1230 IU/mL not detected Above high hortencia l HCV RNA, Quantitative Real Time PCR [place] ([facility]) comment Comment [place] ([facility]) ID Date Data Source [id number] 11/10/2020 01:47:00 PM EDT [facility]) Name Value Range Interpretation Code Description Data Christin rce(s) Supporting Document(s) Hepatitis C virus Ab [Presence] in Serum or Plasma by Immuno assay reactive non-reactive Abnormal (applies to non-numeric results) Hepatitis C Antibo dy [place] ([facility]) Hepatitis C virus Ab Signal/Cutoff in Serum or Plasma by Immunoa ssay <1.00 Above high normal Index [facility] er) ID Date Data Source [id number] 11/10/2020 01:47:00 PM EDT [place] ([facility]) Name Value Range Interpretation Code Description Data Christin rce(s) Supporting Document(s) Hepatitis B virus core Ab [Presence] in Serum or Plasm a by Immunoassay non-reactive non-reactive Hepatitis B Core Ab Total [place] ([facility]) ID Date Data Source [id number] 11/10/2020 01:47:00 PM EDT [facility]) Name Value Range Interpretation Code Description Data Christin rce(s) Supporting Document(s) Hepatitis B virus surface Ag [Presence] in Serum or Pl asma by Immunoassay non-reactive non-reactive [facility]atitis B [facility]igen [facility] Date Data Source [id number] 11/10/2020 01:47:00 PM EDT [place] ([facility]) Name Value Range Interpretation Code Description Data Christin rce(s) Supporting Document(s) Nuclear Ab [Presence] in Serum by Immunofluorescence negative n egative RICHARD Screen, Ifa [place] ([facility]) ID Date Data Source [id number] 11/10/2020 01:47:00 PM EDT [facility]) Name Value Range Interpretation Code Description Data Christin rce(s) Supporting Document(s) Hematocrit [Volume Fraction] of Blood by Automated count 44.2 % 35.0-45.0 Hematocrit [place] ([facility]) Erythrocytes [#/volume] in Blood by Automated count 4.81 million/uL 3.80-5.10 Red Blood Cell Count [place] ([facility]) Hemoglobin [Mass/volume] in Blood 15.0 g/dL 11.7-15.5 He moglobin [place] ([facility]) Leukocytes [#/volume] in Blood by Automated count 7.3 thousand/uL 3 .8-10.8 White Blood Cell Count [place] ([facility]) Platelets [#/volume] in Blood by Automated count 364 thousand/uL 14 0-400 Platelet Count [place] ([facility]) Erythrocyte distribution width [Ratio] by Automated count 12.7 % 11.0-15.0 Rdw [place] ([facility]) Erythrocyte mean corpuscular hemoglobin concentration [Mass/volume] by Automated count 33.9 g/dL 32.0-36.0 Mchc [place] ([facility]) Erythrocyte mean corpuscular hemoglobin [Entitic mass] by Automated count 31.2 pg 27.0-33.0 Mch [place] ([facility]) Erythrocyte mean corpuscular volume [Entitic volume] by Auto mated count 91.9 fL 80.0-100.0 Mcv [place] ([facility]) Platelet mean volume [Entitic volume] in Blood by Evan-Pamela 9.3 fL 7.5-12.5 Mpv [place] ([facility]) Eosinophils [#/volume] in Blood by Automated count 190 cells/uL 15- 500 Absolute Eosinophils [place] ([facility]) Monocytes [#/volume] in Blood by Automated count 511 cells/uL 200-9 50 Absolute Monocytes [place] ([facility]) Neutrophils [#/volume] in Blood by Automated count 4767 cells/uL 15 00-7800 Absolute Neutrophils [place] ([facility]) Basophils [#/volume] in Blood by Automated count 29 cells/uL 0-200 Absolute Basophils [place] ([facility]) Lymphocytes [#/volume] in Blood by Automated count 1803 cells/uL 85 0-3900 Absolute Lymphocytes [place] ([facility]) Basophils/100 leukocytes in Blood by Automated count 0.4 % 0-2 Basophils [place] ([facility]) Monocytes/100 leukocytes in Blood by Automated count 7.0 % 0-13 Monocytes [place] ([facility]) Neutrophils/100 leukocytes in Blood by Automated count 65.3 % 38-80 Neutrophils [place] ([facility]) Eosinophils/100 leukocytes in Blood by Automated count 2.6 % 0-8 Eosinophils [place] ([facility]) Lymphocytes/100 leukocytes in Blood by Automated count 24.7 % 15-49 Lymphocytes [place] ([facility]) ID Date Data Source [id number] 11/10/2020 01:47:00 PM EDT [place] ([facility]) Name Value Range Interpretation Code Description Data Christin rce(s) Supporting Document(s) Creatinine [Mass/volume] in Serum or Plasma 0.66 mg/dL 0.50-1.10 Creatinine [place] ([facility]) Glucose [Mass/volume] in Serum or Plasma 103 mg/dL 65-99 Above high normal Glucose [place] ([facility]) Urea nitrogen [Mass/volume] in Serum or Plasma 13 mg/dL 7-25 Urea Nitrogen (BUN) [place] ([facility]) Glomerular filtration rate/1.73 sq M.pre dicted among blacks [Volume Rate/Area] in Serum, Plasma or Blood by Creatinine-based formula (CKD-EPI) 132 mL/min/1.73m2 > or = 60 eGFR [place] ([facility]) Sodium [Moles/volume] in Serum or Plasma 139 mmol/L 135-146 Sodium [place] ([facility]) Glomerular filtration rate/1.73 sq M.pre dicted among non-blacks [Volume Rate/Area] in Serum, Plasma or Blood by Creatinine-based formula (CKD-EPI) 114 mL/min/1.73m2 > or = 60 eGFR Non-afr. Indian [place] ([facility]) Urea nitrogen/Creatinine [Mass Ratio] in Serum or Plasma not applic able 6-22 BUN/creatinine Ratio [place] ([facility]) Potassium [Moles/volume] in Serum or Plasma 4.6 mmol/L 3.5-5.3 Potassium [place] ([facility]) Carbon dioxide, total [Moles/volume] in Serum or Plasma 28 mmol/L 20-32 Carbon Dioxide [place] ([facility]) Chloride [Moles/volume] in Serum or Plasma 105 mmol/L 98-110 Chloride [place] ([facility]) Calcium [Mass/volume] in Serum or Plasma 9.2 mg/dL 8.6-10.2 Calcium [place] ([facility]) Albumin [Mass/volume] in Serum or Plasma 4.1 g/dL 3.6-5.1 Albumin [place] ([facility]) Protein [Mass/volume] in Serum or Plasma 7.4 g/dL 6.1-8.1 Protein, Total [place] ([facility]) Albumin/Globulin [Mass Ratio] in Serum or Plasma 1.2 (calc) 1.0-2 .5 Albumin/globulin Ratio [place] ([facility]) Globulin [Mass/volume] in Serum by calculation 3.3 g/dL_(calc) 1.9- 3.7 Globulin [place] ([facility]) Alkaline phosphatase [Enzymatic activity/volume] in Serum or Plasma 60 U/L 31-125 Alkaline Phosphatase [place] ([facility]) Alanine aminotransferase [Enzymatic activity/volume] in Seru m or Plasma 12 U/L 6-29 Alt [place] ([facility]) Bilirubin.total [Mass/volume] in Serum or Plasma 0.3 mg/dL 0.2-1 .2 Bilirubin, Total [place] ([facility]) Aspartate aminotransferase [Enzymatic activity/volume] in Serum or Plasma 13 U/L 10-30 Ast [place] ([facility]) ID Date Data Source [id number] 11/10/2020 01:47:00 PM EDT [facility]) Name Value Range Interpretation Code Description Data Christin rce(s) Supporting Document(s) HIV 1+2 Ab+HIV1 p24 Ag [Presence] in Serum or Plasma b y Immunoassay non-reactive non-reactive HIV Ag/Ab, 4TH Gen [facility]) ID Date Data Source [id number] 11/10/2020 01:47:00 PM EDT [facility]) Name Value Range Interpretation Code Description Data Christin rce(s) Supporting Document(s) Cholesterol [Mass/volume] in Serum or Plasma 146 mg/dL <200 Cholesterol, Total [place] ([facility]) Triglyceride [Mass/volume] in Serum or Plasma 139 mg/dL <150 Triglycerides [place] ([facility]) Cholesterol in LDL [Mass/volume] in Serum or Plasma by calculation 89 mg/dL_(calc) LDL-cholesterol [place] ([facility]) Cholesterol in HDL [Mass/volume] in Serum or Plasma 33 mg/dL > or = 50 Below low normal HDL Cholesterol [place] ([facility]) Cholesterol.total/Cholesterol in HDL [Mass Ratio] in Serum o r Plasma 4.4 (calc) <5.0 Chol/hdlc Ratio [place] ([facility]) Cholesterol non HDL [Mass/volume] in Serum or Plasma 113 mg/dL_(johnnie c) <130 Non HDL Cholesterol [place] ([facility]) Procedure Social History Code Duration Value Status Description Data Source(s ) Smoking 02/21/2021 12:00:00 AM EDT Current Smoker completed Curre nt Smoker eCW1 ([facility]) Smoking 02/21/2021 12:00:00 AM EDT Current Smoker completed Curre nt Smoker eCW1 ([facility]) Smoking 12/06/2020 12:00:00 AM EDT Current Smoker completed Curre nt Smoker eCW1 ([facility]) Smoking 12/06/2020 12:00:00 AM EDT Current Smoker completed Curre nt Smoker eCW1 ([facility]) Smoking 12/06/2020 12:00:00 AM EDT Current Smoker completed Curre nt Smoker eCW1 ([facility]) Vital Signs ID Date Data Source [id number] Name Value Range Interpretation Code Description Data Source(s) Body weight 156 [lb_av] 156 [lb_av] eCW1 ([facility]) Body weight 70.76 kg 70.76 kg eCW1 ([facility]) Body height 64 [in_i] 64 [in_i] eCW1 ([facility]) Body mass index (BMI) [Ratio] 26.77 kg/m2 26.77 kg/m2 eCW1 ([facility]) Heart rate 82 /min 82 /min eCW1 ([facility]) Respiratory rate 18 /min 18 /min eCW1 ([facility]) Body temperature 97.8 [degF] 97.8 [degF] eCW1 ( [facility]) Systolic blood pressure 122 mm[Hg] 122 mm[Hg] e CW1 ([facility]) Diastolic blood pressure 74 mm[Hg] 74 mm[Hg] eCW1 ([facility]) Body height 64 [in_i] 64 [in_i] [place] ([facility]) Body height 64 [in_i] 64 [in_i] [place] ([facility]) Diastolic blood pressure 73 mm[Hg] 73 mm[Hg] [place] ([facility]) Body height 64 [in_i] 64 [in_i] [place] ([facility]) Body mass index (BMI) [Ratio] 27.4 kg/m2 27.4 k g/m2 [place] ([facility]) Systolic blood pressure 106 mm[Hg] 106 mm[Hg] A TARUN ([facility]) Body weight 2553.6 [oz_av] 2553.6 [oz_av] ATHEN A ([facility]) Diastolic blood pressure 73 mm[Hg] 73 mm[Hg] [place] ([facility]) Body height 64 [in_i] 64 [in_i] [place] ([facility]) Body mass index (BMI) [Ratio] 27.4 kg/m2 27.4 k g/m2 [place] ([facility]) Systolic blood pressure 106 mm[Hg] 106 mm[Hg] A TARUN ([facility]) Body weight 2553.6 [oz_av] 2553.6 [oz_av] ATHEN A ([facility]) Diastolic blood pressure 73 mm[Hg] 73 mm[Hg] [place] ([facility]) Body height 64 [in_i] 64 [in_i] [place] ([facility]) Body mass index (BMI) [Ratio] 27.4 kg/m2 27.4 k g/m2 [place] ([facility]) Systolic blood pressure 106 mm[Hg] 106 mm[Hg] A [place]ARUN ([facility]) Body weight 2553.6 [oz_av] 2553.6 [oz_av] ATHEN A ([facility]) Patient Treatment Plan of Care Planned Activity Planned Date Details Description Data Source (s) Sulfamethoxazole 800 MG / Trimethoprim 160 MG Oral Tab let [Bactrim] 02/23/2021 12:00:00 AM EDT eCW1 ([facility]) Epclusa 400-100 MG 02/21/2021 12:00:00 AM EDT eCW1 ([facility]) Epclusa 400-100 MG 02/21/2021 12:00:00 AM EDT eCW1 ([facility]) Ondansetron 4 MG Oral Tablet [place] ([facility]) 24 HR Bupropion Hydrochloride 150 MG Extended Release Oral Tablet [place] ([facility]) Sulfamethoxazole 800 MG / Trimethoprim 160 MG Oral Tablet [place] ([facility]) Ondansetron 4 MG Oral Tablet [place] ([facility]) 24 HR Bupropion Hydrochloride 150 MG Extended Release Oral Tablet [place] ([facility]) Sulfamethoxazole 800 MG / Trimethoprim 160 MG Oral Tablet [place] ([facility]) Ondansetron 4 MG Oral Tablet [place] ([facility]) 24 HR Bupropion Hydrochloride 150 MG Extended Release Oral Tablet [place] ([facility])
--- OUTSIDE RECORDS SUMMARY | 2021-05-03 11:44 | CCD ---
Author Author [facility] Organization [facility] Address Unknown Phone Unavailable Care Team Providers Care Health Economist Name Role Phone Dimitrios Sparks Unavailable PROBLEMS Type Condition ICD9-CM Code OBD10-EL Code Onset Dates Condition S tatus W/U Status Risk SNOMED Code Notes Problem Open wound of right thumb without damage to nail , initial encounter S61.001A Active confirmed 330272544 Problem Chronic hepatitis C without hepatic coma B18.2 Active confirmed 567151473 Problem Bilateral swelling of feet M79.89 Active confirmed 248521960 Problem Bilateral hand swelling M79.89 Active confirmed 763789078 Problem 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 Acti ve confirmed 969861109 Problem Marijuana use F12.90 Active confirmed 327400 004 Problem Depressive disorder F32.9 Active confirmed 90187303 Problem Raynaud's disease without gangrene I73.00 Activ e confirmed [id number] ALLERGIES Allergen (clinical drug ingredient) Drug/Non Drug Allergy do cumented on EMR Reaction Allergy Type Onset Date Status codeine Codeine Sulfate([facility] Code:[address]-02) Unknown Drug Al lergy Active ENCOUNTERS from 1984 to 2021-03-01 Encounter Location Date Provider Diagnosis [address] [phone] [place] [address] 14 Feb, 2021 Dimitrios Schmidah IMMUNIZATIONS No Information SOCIAL HISTORY Tobacco Use: [...] REASON FOR REFERRAL No Information VITAL SIGNS No information MEDICATIONS Medication SIG (Take, Route, Frequency, Duration) Notes Start Da te End Date Status Bactrim DS 800-160 MG 1 tablet Orally Twice a day for 10 day(s) Feb, Active Subutex Active Epclusa 400-100 MG 1 tablet Orally Once a day for 28 day(s) Feb, Active buPROPion HCl ER (XL) 150 MG TAKE ONE TABLET BY MOUTH ONCE DAILY Oral for 30 Active PROCEDURES No Information RESULTS No Results REASON FOR VISIT concerned about right foot next to big toe MEDICAL (GENERAL) HISTORY Type Description Date Medical History depression Medical History opiate abuse (stopped Apr 2015) Medical History Hepatitis C positive Surgical History ovarian cyst 2009 Surgical History L hand surgical fixation 2013 Hospitalization History No Hospitalization history informati on Goals Section No Information Health Concerns No Information MEDICAL EQUIPMENT No Information MENTAL STATUS No Information FUNCTIONAL STATUS No Information ASSESSMENTS No Information PLAN OF TREATMENT Medication Medication Name Sig Start Date Stop Date Bactrim DS 800-160 MG 1 tablet Orally Twice a day for 10 day(s) Feb, Epclusa 400-100 MG 1 tablet Orally Once a day for 28 day(s) 2020 Next Appt Details Provider Name:Dimitrios Sparks, 2020-10-0 5 01:30:00 PM, [address], , [place], [address], Insurance Providers Payer Name Payer Address Payer Phone Insured Name Patient Relati onship to Insured Coverage Start Date Coverage End Date [facility] [address] [facility] [phone] [place] self
--- OUTSIDE RECORDS SUMMARY | 2021-05-03 11:44 | CCD ---
Author Organization Unknown Address [address] [place] [address] Phone [phone] Care Team Providers Care Ribbon Tier Name Role Phone Alysa Diaz Unavailable Unavailable Allergies Code Code System Name Reaction Severity Status Onset 2669 RxNorm Codeine Active Medications Name Status Start Date Stop Date buprenorphine HCl 8 mg sublingual tablet TAKE 2 AND 1/2 TABLETS UNDER THE TONGUE ONCE DAILY MAX DAILY DOSE 2.5 TABLETS Active Not available bupropion HCl XL 150 mg 24 hr tablet, ex tended release TAKE ONE TABLET BY MOUTH ONCE DAILY Completed hydroxyzine HCl 50 mg tablet TAKE ONE TABLET BY MOUTH AT BEDTIME MAY REPEAT if NEEDED Active Not available ondansetron HCl 4 mg tablet TAKE 1-2 TABLETS BY MOUTH ONCE DAILY NEEDED Completed 11/08/2020 sulfamethoxazole 800 mg-trimethoprim 160 mg tablet Active Not available Problems Name Status Onset Date Source Addiction Active 11/07/2020 Skin Lesion in Drug Addict Active 11/07/2020 Raynaud's Disease Active 11/08/2020 Viral Hepatitis C Active 11/15/2020 Vitamin D Deficiency Active 12/05/2020 Nicotine Dependence Active 03/08/2021 Procedures Date Name Performed by Excision of Cyst of Ovary Information no t available Notes: fifth metacarpal, cyst removed fr om right ovary Results Lab Results Date Name Specimen Result Interpretation Description Value Range Status Address 11/10/2020 Lipid Panel, Serum Blood venous Normal Lizzie sterol, Total 146 mg/dL <200 mg/dL Final [facility]: [address], [place] Blood venous Low HDL Cholesterol 33 mg/dL > or = 50 mg/dL Final [facility]: [address], [place] Blood venous Normal Triglycerides 139 mg/dL <150 mg/dL Final [facility]: [address], [place] Blood venous Normal LDL-cholesterol 89 mg/dL (johnnie c) Final [facility]: [address], [place] Blood venous Normal Chol/hdlc Ratio 4.4 (calc) <5 .0 (calc) Final [facility]: [address] [facility] Blood venous Normal Non HDL Cholesterol 113 mg/dL (calc) <130 mg/dL (calc) Final [facility]: [address] [facility] 11/10/2020 HIV 1+2 Ab + HIV1 P24 Ag, Quantitative Immunoassay, Serum Normal HIV Ag/Ab, 4TH Gen non-reactive non-reactive [facility]: [address] [facility] 11/10/2020 CMP, Serum or Plasma Blood venous High Glucose 103 mg/dL 65-99 mg/dL Final [facility]: [address] [facility] Blood venous Normal Urea Nitrogen (BUN) 13 mg/dL 7-25 mg/dL Final [facility]: [address] [facility] Blood venous Normal Creatinine 0.66 mg/dL 0.50-1. 10 mg/dL Final [facility]: [address] [facility] Blood venous Normal eGFR Non-afr. Russian 1 14 mL/min/1.73m2 > or = 60 mL/min/1.73m2 Final [facility]: [address] [facility] Blood venous Normal eGFR 13 2 mL/min/1.73m2 > or = 60 mL/min/1.73m2 Final [facility]: [address] [facility] Blood venous BUN/creatinine Ratio not applicable (calc) 6-22 (calc) Final [facility]: [address] [facility] Blood venous Normal Sodium 139 mmol/L 135-146 mmo l/L Final [facility]: [address] [facility] Blood venous Normal Potassium 4.6 mmol/L 3.5-5.3 mmol/L Final [facility]: [address] [facility] Blood venous Normal Chloride 105 mmol/L 98-110 mm ol/L Final [facility]: [address] [facility] Blood venous Normal Carbon Dioxide 28 mmol/L 20-3 2 mmol/L [facility]: [address] [facility] Blood venous Normal Calcium 9.2 mg/dL 8.6-10.2 mg /dL Final [facility]: [address] [facility] Blood venous Normal Protein, Total 7.4 g/dL 6.1-8 .1 g/dL Final [facility]: [address] [facility] Blood venous Normal Albumin 4.1 g/dL 3.6-5.1 g/dL [facility]: [address] [facility] Blood venous Normal Globulin 3.3 g/dL (calc) 1.9- 3.7 g/dL (calc) [facility]: [address] [facility] Blood venous Normal Albumin/globulin Ratio 1 .2 (calc) 1.0-2.5 (calc) [facility]: [address] [facility] Blood venous Normal Bilirubin, Total 0.3 mg/dL 0. 2-1.2 mg/dL [facility]: [address] [facility] Blood venous Normal Alkaline Phosphatase 60 U/L 3 1-125 U/L Final [facility]: [address] [facility] Blood venous Normal Ast 13 U/L 10-30 U/L Final [facility]: [address] [facility] Blood venous Normal Alt 12 U/L 6-29 U/L Final [facility]: [address] [facility] 11/10/2020 CBC W/ Auto Diff Blood venous Normal White B lood Cell Count 7.3 thousand/uL 3.8-10.8 thousand/uL [facility]: [address] [facility] Blood venous Normal Red Blood Cell Count 4.8 1 million/uL 3.80-5.10 million/uL [facility] [address] [facility] Blood venous Normal Hemoglobin 15.0 g/dL 11.7-15. 5 g/dL Final [facility]: [address] [facility] Blood venous Normal Hematocrit 44.2 % 35.0-45.0 % Final [facility]: [address] [facility] Blood venous Normal Mcv 91.9 fL 80.0-100.0 fL Fi nal [facility]: [address] [facility] Blood venous Normal Mch 31.2 pg 27.0-33.0 pg Fin al [facility]: [address] [facility] Blood venous Normal Mchc 33.9 g/dL 32.0-36.0 g/dL [facility]: [address] [facility] Blood venous Normal Rdw 12.7 % 11.0-15.0 % [facility]: [address] [facility] Blood venous Normal Platelet Count 364 thous and/uL 140-400 thousand/uL [facility]: [address] [facility] Blood venous Normal Mpv 9.3 fL 7.5-12.5 fL [facility]: [address] [facility] Blood venous Normal Absolute Neutrophils 476 7 cells/uL [phone] cells/uL [facility]: [address] [facility] Blood venous Normal Absolute Lymphocytes 180 3 cells/uL 850-3900 cells/uL [facility]: [address] [facility] Blood venous Normal Absolute Monocytes 511 c ells/uL 200-950 cells/uL [facility]: [address] [facility] Blood venous Normal Absolute Eosinophils 190 cells/uL 15-500 cells/uL [facility]: [address] [facility] Blood venous Normal Absolute Basophils 29 ce lls/uL 0-200 cells/uL [facility]: [address] [facility] Blood venous Normal Neutrophils 65.3 % 38-80 % [facility]: [address] [facility] Blood venous Normal Lymphocytes 24.7 % 15-49 % [facility]: [address] [facility] Blood venous Normal Monocytes 7.0 % 0-13 % [facility]: [address] [facility] Blood venous Normal Eosinophils 2.6 % 0-8 % Fin [facility]: [address] [facility] Blood venous Normal Basophils 0.4 % 0-2 % [facility]: [address] [facility] 11/10/2020 RICHARD (Antinuclear Antibodies) Screen, Ifa, Serum Blood venous Normal RICHARD Screen, Ifa negative negative Final [facility] [address] [facility] 11/10/2020 HBsAg (Hepatitis B Surface Ag), Serum Blood venous Normal Hepatitis B Surface Antigen non-reactive non-reactive Final [facility]: [address] [facility] 11/10/2020 Hepatitis B Core Ab, Total, Serum Blood venous Normal Hepatitis B Core Ab Total non-reactive non-reactive Final [facility]: [address] [facility] 11/10/2020 Hepatitis C Virus Ab, Serum Blood venous ABNORMAL Hepatitis C Antibody reactive non-reactive Final [facility]: [address] [facility] Blood venous High Index 30.60 <1.00 Final [facility]: [address] [facility] 11/10/2020 Hepatitis C Virus RNA, Quant, PCR, Serum or Plasma High HCV RNA, Quantitative Real Time PCR 1230 IU/mL not detected IU/mL Final [facility]: [address] [facility] High HCV RNA, Quantitative Real Time PCR 3.09 log IU/mL not detected log IU/mL Final [facility] [address] [facility] Comment Final [facility]: [address] [facility] 11/10/2020 Tsh Normal Tsh 1.17 mIU/L Final [facility]: [address] [facility] 11/10/2020 Vitamin D, 25-Hydroxy, Total, Serum Blood venous Low Vitamin D,25-Oh,total,ia 19 NG/mL 30-100 NG/mL Final [facility]: [address] [facility] 11/10/2020 HbA1C (Hemoglobin a1C), Blood Blood venous Normal Hemoglobin a1C 4.9 % of total HGB <5.7 % of total HGB Final [facility]: [address] [facility] 11/10/2020 RPR (Rapid Plasma Reagin), Serum Blood venous Normal RPR (DX) W/refl Titer and Confirmatory Testing non-reactive non-reactive Final [facility]: [address] [facility] Past Encounters 03/08/2021 Viral Hepatitis C; Vitamin D Deficiency; Thromboangiitis Obliterans; Nicotine Dependence Alysa Diaz MD: [address] [place] [phone], Ph. 11/10/2020 Endocrine/metabolic Screening; Venereal Disease Screening; Hyperlipidemia Screening; Raynaud's Disease Darwin Giron MD: [address] [place] [address] [place] [phone], Ph. 11/08/2020 Patient New to Provider; Hyperlipidemia Screening; Endocrine/metabolic Screening; Venereal Disease Screening; Body Mass Index 25-29 - Overweight; Nicotine Dependence with Current Use; Type B Viral Hepatitis; Raynaud's Disease Alysa Diaz MD: [address] [place] [phone], Ph. Social History Tobacco Smoking Status Heavy Tobacco Smoker (1/2 pack per a day) Vaccine List None recorded. Plan of Care Reminders Provider Appointments None recorded. Lab None recorded. Referral None recorded. Procedures None recorded. Surgeries None recorded. Imaging None recorded. Vitals 11/10/2020 01:30PM NURSE LAB COLLECTION Height 64 in 11/08/2020 11:20AM NEW PATIENT (11yrs - OLDER) Height Weight BMI Blood Pressure 64 in 159 lbs 9.6 oz 27.4 kg/m2 106/73 mm[Hg ]
[2021-05-03] MEDS ORDERED: AMIT25TA17 (11:46)
[2021-05-03] MEDS ORDERED: GABA600T4 (11:46)
[2021-05-03 13:28] LABS: RSV AMPLIFICATION NEGATIVE (NEGATIVE)
--- OUTSIDE RECORDS SUMMARY | 2021-05-03 14:01 | CCD ---
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 If you continue you may have access to information: Regarding HIV / AIDS; Provided by facilities licensed or operated by the [facility] Office of Mental Health; or Provided by the [facility] Office for People With Developmental Disabilities. If such information is present, then the following [facility] mandated warning applies: This information has been [...] law may result in a fine or halfway sentence or both. A general authorization for the release of medical or other information is NOT sufficient authorization for further disc losure. Family History Family Member Name Family Member Gender Family Member Status Date o f Status Description Data Source(s) Unknown Unknown Problem [facility], ) Encounters Encounter Providers Location Date Indications Data Source(s ) Outpatient Attender: ERIN RODRIGUEZ MD 03/28/2021 11:15: 00 AM EDT [facility] Alysa Diaz MD: [address] [place] [phone], Ph. Attender: Alysa Diaz [facility] Medical 03/08/2021 12:00:00 AM EDT JAYLA ([facility]) Unknown [address] [facility] [id number] 02/28/2021 12:00:00 AM EDT eCW1 ([facility]) Outpatient [address] [id number] 02/21/2021 12:00:00 AM EDT eCW1 ([facility]) Unknown [address] [facility] [place] [address] 01/10/2021 12:00:00 AM EDT eCW1 ([facility]) Unknown [address] [facility] [place] [address] 12/27/2020 12:00:00 AM EDT eCW1 ([facility]) Unknown [address] [facility] [place] [id number] 12/06/2020 12:00:00 AM EDT eCW1 ([facility]) Darwin Giron MD: [address] [place] [address], Ph. Attender: Darwin Giron MD [facility] Medical 11/10/2020 12:00:00 AM EDT JAYLA ([facility]) Darwin Giron MD: [address] [place] [address], Ph. Attender: Darwin Giron MD [facility] Medical 11/10/2020 12:00:00 AM EDT PATERSON ([facility]) Alysa Diaz MD: [address], [facility] [address], Ph. Attender: Alysa Diaz [facility] Medical 11/08/2020 12:00:00 AM EDT PATERSON ([facility]) Alysa Diaz MD: [address], [place] [address], Ph. Attender: Alysa Diaz [facility] Medical 11/08/2020 12:00:00 AM EDT PATERSON ([facility]) Alysa Diaz MD: [address], [facility] [facility] [address], Ph. Attender: Alysa Diaz [facility] Medical 11/08/2020 12:00:00 AM EDT PATERSON ([facility]) Medications Medication Brand Name Start Date Product Form Dose Route Admi nistrative Instructions Pharmacy Instructions Status Indications Reaction Description Data Source(s) Sulfamethoxazole 800 MG / Trimethoprim 1 60 MG Oral Tablet [Bactrim] Bactrim DS 800-160 MG Bactrim DS 800-160 MG 02/23/2021 12:00:00 AM EDT 1.0 {table t} active Bactrim DS 800-160 MG eCW1 ( [facility]) Epclusa 400-100 MG Epclusa 400-100 MG 02/21/2021 12:00:00 AM EDT 1.0 {tablet} active Epclusa 400-100 MG e CW1 ([facility]) Epclusa 400-100 MG Epclusa 400-100 MG 02/21/2021 12:00:00 AM EDT 1.0 {tablet} active Epclusa 400-100 MG e CW1 ([facility]) Ondansetron 4 MG Oral Tablet ondansetron HCl 4 mg tablet TAKE 1-2 TABLETS BY MOUTH ONCE DAILY NEEDED ondansetron HCl 4 mg tablet TAKE 1-2 TAB LETS BY MOUTH ONCE DAILY NEEDED completed ondansetron 4 MG Oral Tablet JAYLA ([facility]) 24 HR Bupropion Hydrochloride 150 MG Ext ended Release Oral Tablet bupropion HCl XL 150 mg 24 hr tablet, extended release TAKE ONE TABLET BY MOUTH ONCE DAILY bupropion HCl XL 150 mg 24 hr tablet, extended release TAKE ONE TABLET BY MOUTH ONCE DAILY completed 24 HR bupropion hydrochloride 150 MG Extended Release Oral Tablet JAYLA ([facility]) Ondansetron 4 MG Oral Tablet ondansetron HCl 4 mg tablet TAKE 1-2 TABLETS BY MOUTH ONCE DAILY NEEDED ondansetron HCl 4 mg tablet TAKE 1-2 TAB LETS BY MOUTH ONCE DAILY NEEDED completed ondansetron 4 MG Oral Tablet JAYLA ([facility]) 24 HR Bupropion Hydrochloride 150 MG Ext ended Release Oral Tablet bupropion HCl XL 150 mg 24 hr tablet, extended release TAKE ONE TABLET BY MOUTH ONCE DAILY bupropion HCl XL 150 mg 24 hr tablet, extended release TAKE ONE TABLET BY MOUTH ONCE DAILY completed 24 HR bupropion hydrochloride 150 MG Extended Release Oral Tablet JAYLA ([facility]) Sulfamethoxazole 800 MG / Trimethoprim 1 60 MG Oral Tablet sulfamethoxazole 800 mg-trimethoprim 160 mg tablet TAKE ONE TABLET BY MOUTH TWICE DAILY FOR 14 DAYS sulfamethoxazole 800 mg-trimethoprim 160 mg tablet TAKE ONE TABLET BY MOUTH TWICE DAILY FOR 14 DAYS completed sulfamethoxazole 800 MG / trimethoprim 160 MG Oral Tablet JAYLA ([facility]) 24 HR Bupropion Hydrochloride 150 MG Ext ended Release Oral Tablet bupropion HCl XL 150 mg 24 hr tablet, extended release TAKE ONE TABLET BY MOUTH ONCE DAILY bupropion HCl XL 150 mg 24 hr tablet, extended release TAKE ONE TABLET BY MOUTH ONCE DAILY completed 24 HR bupropion hydrochloride 150 MG Extended Release Oral Tablet JAYLA ([facility]) Sulfamethoxazole 800 MG / Trimethoprim 1 60 MG Oral Tablet sulfamethoxazole 800 mg-trimethoprim 160 mg tablet TAKE ONE TABLET BY MOUTH TWICE DAILY FOR 14 DAYS sulfamethoxazole 800 mg-trimethoprim 160 mg tablet TAKE ONE TABLET BY MOUTH TWICE DAILY FOR 14 DAYS completed sulfamethoxazole 800 MG / trimethoprim 160 MG Oral Tablet JAYLA ([facility]) Ondansetron 4 MG Oral Tablet ondansetron HCl 4 mg tablet TAKE 1-2 TABLETS BY MOUTH ONCE DAILY NEEDED ondansetron HCl 4 mg tablet TAKE 1-2 TAB LETS BY MOUTH ONCE DAILY NEEDED completed ondansetron 4 MG Oral Tablet JAYLA ([facility]) Insurance Providers Payer name Policy type / Coverage type Policy ID Covered republican ID Covered republican's relationship to mckeon Policy Cmkeon Plan Information [employer]AN MCDO [id number] SP [id number] [employer] COMMUNITY PLAN MCDO [id number] SP [id number] UNHC COMMUNITY PLAN MCDO [id number] SP [id number] [facility] I [id number] Self [id number] MEDICAID [facility] [place] [id number] [facility] O [id number] S [id number] UN COMMUNITY PLAN MCDO [id number] SP [id number] [facility] COMMUNITY PLAN MCDO [id number] SP [id number] [facility] COMMUNITY PLAN MEDICAID [id number] 0 [id number] MEDICAID [id number] SP [id number] SELF PAY UNAVAILABLE SP UNAVAILA BLE [facility] Health Maintenance Organization (HMO) [id number] Self [id number] [facility] MEDICAID [id number] S [id number] UN COMMUNITY PLAN MCDO [id number] SP [id number] [facility] COMMUNITY PLAN [id number] Problems, Conditions, and Diagnoses Code Display Name Description Problem Type Effective Dates Data Source(s) 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 NON-PRS CHRONIC ULCER OTH PRT L FOOT LIMITED TO BR Diagnosis 03/28/2021 11:15:00 AM [facility] L97.511 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 NON-PRS CHRONIC ULCER OTH PRT R FOOT LIMITED TO BRKDWN SKIN Diagnosis 03/28/2021 11:15:00 AM [facility] [id number] Nicotine dependence Nicotine Dependence Problem 0 [facility] I73.00 [id number] Raynaud's disease without gangrene Proble m 02/21/2021 12:00:00 AM EDT eCW1 ([facility]) F32.9 [id number] Depressive disorder Problem 02/21/2021 12:00 :00 AM EDT eCW1 ([facility]) F12.90 [id number] Marijuana use Problem 02/21/2021 12:00:00 AM EDT eCW1 ([facility]) F19.11 [id number] Intravenous drug abuse in remission Probl em 02/21/2021 12:00:00 AM EDT eCW1 ([facility]) M79.89 [id number] Bilateral hand swelling Problem 02/21/2021 1 2:00:00 AM EDT eCW1 ([facility]) M79.89 [id number] Bilateral swelling of feet Problem 12:00:00 AM EDT eCW1 ([facility]) B18.2 [id number] Chronic hepatitis C without hepatic coma Problem 12/13/2020 12:00:00 AM EDT eCW1 ([facility]) [id number] Vitamin D deficiency Vitamin D Deficiency Problem 12/05/2020 12:00:00 AM EDT JAYLA ([facility] er) [id number] Viral hepatitis C Viral Hepatitis C Problem 11/15/2020 12:00:00 AM EDT JAYLA ([facility]) [id number] Raynaud's disease Raynaud's Disease Problem 11/08 12:00:00 AM EDT JAYLA ([facility] er) [id number] Raynaud's disease Raynaud's Disease Problem 11/08 12:00:00 AM EDT JAYLA ([facility] er) [id number] Type B viral hepatitis Type B Viral Hepatitis Problem 11/08/2020 12:00:00 AM EDT JAYLA ([facility] er) [id number] Raynaud's disease Raynaud's Disease Problem 11/08 12:00:00 AM EDT JAYLA ([facility] er) [id number] Type B viral hepatitis Type B Viral Hepatitis Problem 11/08/2020 12:00:00 AM EDT JAYLA ([facility] er) [id number] Skin lesion in drug addict Skin Lesion in Drug Addict Problem 11/07/2020 12:00:00 AM EDT JAYLA ([facility] er) [id number] Addiction Addiction Problem 11/07/2020 12:00:00 AM ED T JAYLA ([facility]) [id number] Skin lesion in drug addict Skin Lesion in Drug Addict Problem 11/07/2020 12:00:00 AM EDT JAYLA ([facility] er) [id number] Addiction Addiction Problem 11/07/2020 12:00:00 AM ED T JAYLA ([facility]) [id number] Skin lesion in drug addict Skin Lesion in Drug Addict Problem 11/07/2020 12:00:00 AM EDT JAYLA ([facility]) [id number] Addiction Addiction Problem 11/07/2020 12:00:00 AM ED T JAYLA ([facility]) Surgeries/Procedures No Information Results ID Date Data Source CBC with Auto Differential 02/21/2021 12:00:00 AM EDT W1 ( [facility]) Name Value Range Interpretation Code Description Data Christin rce(s) Supporting Document(s) 6.4 4.0-10.0 WHITE BLOOD COUNT eCW1 ([facility]) 14.4 12.0-15.5 HEMOGLOBIN eCW1 (Counts include 234 beds at the [facility]) 4.75 4.00-5.40 RED BLOOD COUNT eCW1 ([facility]) 44.4 36.0-47.0 HEMATOCRIT eCW1 (Counts include 234 beds at the [facility]) 93.5 80.0-96.0 MEAN CORPUSCULAR VOLUME e CW1 ([facility]) 30.3 27.0-33.0 MEAN CORPUSCULAR HEMOGLOB IN eCW1 ([facility]) 13.2 11.5-14.5 RED CELL DISTRIBUTION WID TH eCW1 ([facility]) 327 150-450 PLATELET COUNT, AUTOMATED eCW1 ([facility]) 32.4 32.0-36.5 MEAN CORPUSCULAR HGB CONC eCW1 ([facility]) 6.4 2.0-8.0 MONO % eCW1 ([facility]) 30.3 24.0-44.0 LYMPH % eCW1 ([facility]) 59.4 36.0-66.0 NEUTROPHILS % eCW1 ([facility]) 3.0 0.0-3.0 EOS % eCW1 ([facility]) 0.3 0-3.0 IMMATURE GRANULOCYTE % eCW1 ([facility]) 0.6 0.0-1.0 BASO % eCW1 ([facility]) 3.8 1.5-8.5 NEUTROPHILS # eCW1 ([facility]) 0.0 0-0 NUCLEATED RED BLOOD CELL % eCW 1 ([facility]) 1.9 1.5-5.0 LYMPH # eCW1 ([facility]) 0.0 0.0-0.2 BASO # eCW1 ([facility]) 0.4 0.0-0.8 MONO # eCW1 ([facility]) 0.2 0.0-0.5 EOS # eCW1 ([facility]) ID Date Data Source WOUND CULTURE AND GRAM ST 02/21/2021 12:00:00 AM EDT eCW1 ([facility]) Name Value Range Interpretation Code Description Data Christin rce(s) Supporting Document(s) WOUND CULTURE AND GRAM ST eCW1 ([facility]) ID Date Data Source ERYTHROCYTE SEDIMENTATION RATE 02/21/2021 12:00:00 AM EDT eC W1 ([facility]) Name Value Range Interpretation Code Description Data Christin rce(s) Supporting Document(s) 13 0-20 ERYTHROCYTE SEDIMENTATION RATE W1 ([facility]) ID Date Data Source [facility] Hand,(Pa\Lat) 02/21/2021 12:00:00 AM EDT eCW1 ([facility]) Name Value Range Interpretation Code Description Data Christin rce(s) Supporting Document(s) [facility] Hand,(Pa\Lat) eCW1 ([facility]) ID Date Data Source [facility] Foot, (Ap\Lat) 02/21/2021 12:00:00 AM EDT eCW1 ([facility]) Name Value Range Interpretation Code Description Data Christin rce(s) Supporting Document(s) [facility] Foot, (Ap\Lat) eCW1 ([facility]) ID Date Data Source RHEUMATOID FACTOR QUANT 02/21/2021 12:00:00 AM EDT eCW1 ([facility]) Name Value Range Interpretation Code Description Data Christin rce(s) Supporting Document(s) < 10.0 <15.0 RHEUMATOID FACTOR QUANT eCW1 ( [facility]) ID Date Data Source C REACTIVE PROTEIN QUANTITATIV (At [facility] Lab) 02/21/2021 12:00 :00 AM EDT eCW1 ([facility]) Name Value Range Interpretation Code Description Data Christin rce(s) Supporting Document(s) 0.82 0.00-0.30 C REACTIVE PROTEIN QUANTI TATIV eCW1 ([facility]) ID Date Data Source [id number] 11/10/2020 01:47:00 PM EDT [facility]) Name Value Range Interpretation Code Description Data Christin rce(s) Supporting Document(s) Reagin Ab [Presence] in Serum by RPR non-reactive non-reactive RPR (DX) W/refl Titer and Confirmatory Testing [facility]) ID Date Data Source [id number] 11/10/2020 01:47:00 PM EDT [facility]) Name Value Range Interpretation Code Description Data Christin rce(s) Supporting Document(s) Hemoglobin A1c/Hemoglobin.total in Blood 4.9 %_of_total_HGB <5.7 Hemoglobin a1C [facility]) ID Date Data Source [id number] 11/10/2020 01:47:00 PM EDT [facility]) Name Value Range Interpretation Code Description Data Christin rce(s) Supporting Document(s) Calcidiol [Mass/volume] in Serum or Plasma 19 NG/mL 30-100 Below low normal Vitamin D,25-Oh,total,ia [facility]) ID Date Data Source [id number] 11/10/2020 01:47:00 PM EDT [facility]) Name Value Range Interpretation Code Description Data Christin rce(s) Supporting Document(s) Thyrotropin [Units/volume] in Serum or Plasma 1.17 mIU/L Tsh [facility]) ID Date Data Source [id number] 11/10/2020 01:47:00 PM EDT [facility]) Name Value Range Interpretation Code Description Data Christin rce(s) Supporting Document(s) Hepatitis C virus RNA [log units/volume] (viral load) in Serum or Plasma by Probe and target amplification method 3.09 log_IU/mL not detected Ab ove high normal HCV RNA, Quantitative Real Time PCR PATERSON ([facility]) Hepatitis C virus RNA [Units/volume] (vi ral load) in Serum or Plasma by Probe and target amplification method 1230 IU/mL not detected Above high hortecnia l HCV RNA, Quantitative Real Time PCR PATERSON ([facility]) comment Comment PATERSON ([facility]) ID Date Data Source [id number] 11/10/2020 01:47:00 PM EDT [facility]) Name Value Range Interpretation Code Description Data Christin rce(s) Supporting Document(s) Hepatitis C virus Ab [Presence] in Serum or Plasma by Immuno assay reactive non-reactive Abnormal (applies to non-numeric results) Hepatitis C Antibo dy PATERSON ([facility]) Hepatitis C virus Ab Signal/Cutoff in Serum or Plasma by Immunoa ssay <1.00 Above high normal Index [facility] er) ID Date Data Source [id number] 11/10/2020 01:47:00 PM EDT PATERSON ([facility]) Name Value Range Interpretation Code Description Data Christin rce(s) Supporting Document(s) Hepatitis B virus core Ab [Presence] in Serum or Plasm a by Immunoassay non-reactive non-reactive Hepatitis B Core Ab Total JAYLA ([facility]) ID Date Data Source [id number] 11/10/2020 01:47:00 PM EDT [facility]) Name Value Range Interpretation Code Description Data Christin rce(s) Supporting Document(s) Hepatitis B virus surface Ag [Presence] in Serum or Pl asma by Immunoassay non-reactive non-reactive [facility]atitis B [facility] Antigen [facility] ID Date Data Source [id number] 11/10/2020 01:47:00 PM EDT PATERSON ([facility]) Name Value Range Interpretation Code Description Data Christin rce(s) Supporting Document(s) Nuclear Ab [Presence] in Serum by Immunofluorescence negative n egative RICHARD Screen, Ifa PATERSON ([facility]) ID Date Data Source [id number] 11/10/2020 01:47:00 PM EDT [facility]) Name Value Range Interpretation Code Description Data Christin rce(s) Supporting Document(s) Hematocrit [Volume Fraction] of Blood by Automated count 44.2 % 35.0-45.0 Hematocrit JAYLA ([facility]) Erythrocytes [#/volume] in Blood by Automated count 4.81 million/uL 3.80-5.10 Red Blood Cell Count JAYLA ([facility]) Hemoglobin [Mass/volume] in Blood 15.0 g/dL 11.7-15.5 He moglobin JAYLA ([facility]) Leukocytes [#/volume] in Blood by Automated count 7.3 thousand/uL 3 .8-10.8 White Blood Cell Count JAYLA ([facility]) Platelets [#/volume] in Blood by Automated count 364 thousand/uL 14 0-400 Platelet Count JAYLA ([facility]) Erythrocyte distribution width [Ratio] by Automated count 12.7 % 11.0-15.0 Rdw JAYLA ([facility]) Erythrocyte mean corpuscular hemoglobin concentration [Mass/volume] by Automated count 33.9 g/dL 32.0-36.0 Mchc JAYLA ([facility]) Erythrocyte mean corpuscular hemoglobin [Entitic mass] by Automated count 31.2 pg 27.0-33.0 Mch JAYLA ([facility]) Erythrocyte mean corpuscular volume [Entitic volume] by Auto mated count 91.9 fL 80.0-100.0 Mcv JAYLA ([facility]) Platelet mean volume [Entitic volume] in Blood by Evan-Pamela 9.3 fL 7.5-12.5 Mpv JAYLA ([facility]) Eosinophils [#/volume] in Blood by Automated count 190 cells/uL 15- 500 Absolute Eosinophils JAYLA ([facility]) Monocytes [#/volume] in Blood by Automated count 511 cells/uL 200-9 50 Absolute Monocytes JAYLA ([facility]) Neutrophils [#/volume] in Blood by Automated count 4767 cells/uL 15 00-7800 Absolute Neutrophils JAYLA ([facility]) Basophils [#/volume] in Blood by Automated count 29 cells/uL 0-200 Absolute Basophils JAYLA ([facility]) Lymphocytes [#/volume] in Blood by Automated count 1803 cells/uL 85 0-3900 Absolute Lymphocytes JAYLA ([facility]) Basophils/100 leukocytes in Blood by Automated count 0.4 % 0-2 Basophils JAYLA ([facility]) Monocytes/100 leukocytes in Blood by Automated count 7.0 % 0-13 Monocytes JAYLA ([facility]) Neutrophils/100 leukocytes in Blood by Automated count 65.3 % 38-80 Neutrophils JAYLA ([facility]) Eosinophils/100 leukocytes in Blood by Automated count 2.6 % 0-8 Eosinophils JAYLA ([facility]) Lymphocytes/100 leukocytes in Blood by Automated count 24.7 % 15-49 Lymphocytes JAYLA ([facility]) ID Date Data Source [id number] 11/10/2020 01:47:00 PM EDT JAYLA ([facility]) Name Value Range Interpretation Code Description Data Christin rce(s) Supporting Document(s) Creatinine [Mass/volume] in Serum or Plasma 0.66 mg/dL 0.50-1.10 Creatinine JAYLA ([facility]) Glucose [Mass/volume] in Serum or Plasma 103 mg/dL 65-99 Above high normal Glucose JAYLA ([facility]) Urea nitrogen [Mass/volume] in Serum or Plasma 13 mg/dL 7-25 Urea Nitrogen (BUN) JYALA ([facility]) Glomerular filtration rate/1.73 sq M.pre dicted among blacks [Volume Rate/Area] in Serum, Plasma or Blood by Creatinine-based formula (CKD-EPI) 132 mL/min/1.73m2 > or = 60 eGFR JAYLA (No [facility]) Sodium [Moles/volume] in Serum or Plasma 139 mmol/L 135-146 Sodium JAYLA ([facility]) Glomerular filtration rate/1.73 sq M.pre dicted among non-blacks [Volume Rate/Area] in Serum, Plasma or Blood by Creatinine-based formula (CKD-EPI) 114 mL/min/1.73m2 > or = 60 eGFR Non-afr. Stateless JAYLA ([facility]) Urea nitrogen/Creatinine [Mass Ratio] in Serum or Plasma not applic able 6-22 BUN/creatinine Ratio JAYLA ([facility]) Potassium [Moles/volume] in Serum or Plasma 4.6 mmol/L 3.5-5.3 Potassium JAYLA ([facility]) Carbon dioxide, total [Moles/volume] in Serum or Plasma 28 mmol/L 20-32 Carbon Dioxide JAYLA ([facility]) Chloride [Moles/volume] in Serum or Plasma 105 mmol/L 98-110 Chloride JAYLA ([facility]) Calcium [Mass/volume] in Serum or Plasma 9.2 mg/dL 8.6-10.2 Calcium JAYLA ([facility]) Albumin [Mass/volume] in Serum or Plasma 4.1 g/dL 3.6-5.1 Albumin JAYLA ([facility]) Protein [Mass/volume] in Serum or Plasma 7.4 g/dL 6.1-8.1 Protein, Total JAYLA ([facility]) Albumin/Globulin [Mass Ratio] in Serum or Plasma 1.2 (calc) 1.0-2 .5 Albumin/globulin Ratio JAYLA ([facility]) Globulin [Mass/volume] in Serum by calculation 3.3 g/dL_(calc) 1.9- 3.7 Globulin JAYLA ([facility]) Alkaline phosphatase [Enzymatic activity/volume] in Serum or Plasma 60 U/L 31-125 Alkaline Phosphatase JAYLA ([facility]) Alanine aminotransferase [Enzymatic activity/volume] in Seru m or Plasma 12 U/L 6-29 Alt PATERSON ([facility]) Bilirubin.total [Mass/volume] in Serum or Plasma 0.3 mg/dL 0.2-1 .2 Bilirubin, Total PATERSON ([facility]) Aspartate aminotransferase [Enzymatic activity/volume] in Serum or Plasma 13 U/L 10-30 Ast PATERSON ([facility]) ID Date Data Source [id number] 11/10/2020 01:47:00 PM EDT [facility]) Name Value Range Interpretation Code Description Data Christin rce(s) Supporting Document(s) HIV 1+2 Ab+HIV1 p24 Ag [Presence] in Serum or Plasma b y Immunoassay non-reactive non-reactive HIV Ag/Ab, 4TH Gen [facility]) ID Date Data Source [id number] 11/10/2020 01:47:00 PM EDT [facility]) Name Value Range Interpretation Code Description Data Christin rce(s) Supporting Document(s) Cholesterol [Mass/volume] in Serum or Plasma 146 mg/dL <200 Cholesterol, Total PATERSON ([facility]) Triglyceride [Mass/volume] in Serum or Plasma 139 mg/dL <150 Triglycerides PATERSON ([facility]) Cholesterol in LDL [Mass/volume] in Serum or Plasma by calculation 89 mg/dL_(calc) LDL-cholesterol PATERSON ([facility]) Cholesterol in HDL [Mass/volume] in Serum or Plasma 33 mg/dL > or = 50 Below low normal HDL Cholesterol JAYLA ([facility]) Cholesterol.total/Cholesterol in HDL [Mass Ratio] in Serum o r Plasma 4.4 (calc) <5.0 Chol/hdlc Ratio JAYLA ([facility]) Cholesterol non HDL [Mass/volume] in Serum or Plasma 113 mg/dL_(johnnie c) <130 Non HDL Cholesterol JAYLA ([facility]) Procedure Social History Code Duration Value Status Description Data Source(s ) Smoking 02/21/2021 12:00:00 AM EDT Current Smoker completed Curre nt Smoker eCW1 ([facility]ly [facility]) Smoking 02/21/2021 12:00:00 AM EDT Current Smoker completed Curre nt Smoker eCW1 ([facility]ly [facility]) Smoking 12/06/2020 12:00:00 AM EDT Current Smoker completed Curre nt Smoker eCW1 ([facility]ly [facility]) Smoking 12/06/2020 12:00:00 AM EDT Current Smoker completed Curre nt Smoker eCW1 ([facility]ly [facility]) Smoking 12/06/2020 12:00:00 AM EDT Current Smoker completed Curre nt Smoker eCW1 ([facility]ly [facility]) Vital Signs ID Date Data Source UNK Name Value Range Interpretation Code Description Data Source(s) Body weight 156 [lb_av] 156 [lb_av] eCW1 ([facility]) Body weight 70.76 kg 70.76 kg eCW1 ([facility]) Body height 64 [in_i] 64 [in_i] eCW1 ([facility]) Body mass index (BMI) [Ratio] 26.77 kg/m2 26.77 kg/m2 eCW1 ([facility]) Heart rate 82 /min 82 /min eCW1 ([facility]) Respiratory rate 18 /min 18 /min eCW1 ([facility]) Body temperature 97.8 [degF] 97.8 [degF] eCW1 ( [facility]) Systolic blood pressure 122 mm[Hg] 122 mm[Hg] e CW1 ([facility]) Diastolic blood pressure 74 mm[Hg] 74 mm[Hg] eCW1 ([facility]) Body height 64 [in_i] 64 [in_i] JAYLA ([facility]) Body height 64 [in_i] 64 [in_i] JAYLA ([facility]) Systolic blood pressure 106 mm[Hg] 106 mm[Hg] [facility] Diastolic blood pressure 73 mm[Hg] 73 mm[Hg] JAYLA ([facility]) Body height 64 [in_i] 64 [in_i] JAYLA ([facility]) Body mass index (BMI) [Ratio] 27.4 kg/m2 27.4 k g/m2 JAYLA ([facility]) Systolic blood pressure 106 mm[Hg] 106 mm[Hg] A [facility] ([facility]) Body weight 2553.6 [oz_av] 2553.6 [oz_av] ATHEN A ([facility]) Diastolic blood pressure 73 mm[Hg] 73 mm[Hg] JAYLA ([facility]) Body height 64 [in_i] 64 [in_i] JAYLA ([facility]) Body mass index (BMI) [Ratio] 27.4 kg/m2 27.4 k g/m2 JAYLA ([facility]) Body weight 2553.6 [oz_av] 2553.6 [oz_av] ATHEN A ([facility]) Diastolic blood pressure 73 mm[Hg] 73 mm[Hg] JAYLA ([facility]) Body height 64 [in_i] 64 [in_i] JAYLA ([facility]) Body mass index (BMI) [Ratio] 27.4 kg/m2 27.4 k g/m2 JAYLA ([facility]) Systolic blood pressure 106 mm[Hg] 106 mm[Hg] [facility] Body weight 2553.6 [oz_av] 2553.6 [oz_av] ATHEN A ([facility]) Patient Treatment Plan of Care Planned Activity Planned Date Details Description Data Source (s) Sulfamethoxazole 800 MG / Trimethoprim 160 MG Oral Tab let [Bactrim] 02/23/2021 12:00:00 AM EDT eCW1 ([facility]) Epclusa 400-100 MG 02/21/2021 12:00:00 AM EDT eCW1 ([facility]) Epclusa 400-100 MG 02/21/2021 12:00:00 AM EDT eCW1 ([facility]) Ondansetron 4 MG Oral Tablet JAYLA ([facility]) 24 HR Bupropion Hydrochloride 150 MG Extended Release Oral Tablet JAYLA ([facility]) Sulfamethoxazole 800 MG / Trimethoprim 160 MG Oral Tablet JAYLA ([facility]) Ondansetron 4 MG Oral Tablet JAYLA ([facility]) 24 HR Bupropion Hydrochloride 150 MG Extended Release Oral Tablet JAYLA ([facility]) Sulfamethoxazole 800 MG / Trimethoprim 160 MG Oral Tablet JAYLA ([facility]) Ondansetron 4 MG Oral Tablet JAYLA ([facility]) 24 HR Bupropion Hydrochloride 150 MG Extended Release Oral Tablet JAYLA ([facility])
[2021-05-03 15:49] VITALS: BP 122/73
[2021-05-03] MEDS ORDERED: VANCOMYCIN HCL 1,250 MG in IV FLUID PLACE HOLDER 1 EA IV ONE (16:15)
[2021-05-03] MEDS ORDERED: VANCOMYCIN HCL 750 MG, VIAL MATE ADAPTER 1 EACH in NS 250 ML IV ONE (16:30)
[2021-05-03] MEDS ORDERED: ALPRAZolam 0.5 MG TAB PO ONE (16:30)
--- OUTSIDE RECORDS SUMMARY | 2021-05-03 16:36 | CCD ---
Author Author [facility] Organization [facility] Address Unknown Phone Unavailable Care Team Providers Care Acid Bleacher Name Role Phone Leonidas Giron MD Unavailable [...] is protected by Article 27-F of the [facility] Public Health law. If you continue you may have access to information: Regarding HIV / AIDS; Provided by facilities licensed or operated by the [facility] Office of Mental Health; or Provided by the [facility] Office for People With Developmental Disabilities. If such information is present, then the following [facility] mandated warning applies: This information has been [...] law may result in a fine or detention sentence or both. A general authorization for the release of medical or other information is NOT sufficient authorization for further disc losure. Family History Family Member Name Family Member Gender Family Member Status Date o f Status Description Data Source(s) Unknown Unknown Problem [facility] Encounters Encounter Providers Location Date Indications Data Source(s ) Outpatient Attender: ERIN RODRIGUEZ MD 03/28/2021 11:15: 00 AM EDT [facility] Alysa Diaz MD: [address] [place] [phone], Ph. Attender: [facility] Medical 03/08/2021 12:00:00 AM EDT JAYLA ([facility]) Unknown [address] [facility] [id number] 02/28/2021 12:00:00 AM EDT eCW1 ([facility]) Outpatient [address] [facility] [id number] 02/21/2021 12:00:00 AM EDT eCW1 ([facility]) Unknown [address] [facility] [place] [address] 01/10/2021 12:00:00 AM EDT eCW1 ([facility]) Unknown [address] [facility] [place] [address] 12/27/2020 12:00:00 AM EDT eCW1 ([facility]) Unknown [address] [facility] [place] [address] 12/06/2020 12:00:00 AM EDT eCW1 ([facility]) Darwin Giron MD: [address] [place] [address], Ph. Attender: Darwin Giron MD [facility] Medical 11/10/2020 12:00:00 AM EDT JAYLA ([facility]) Darwin Giron MD: [address] [place] [address], Ph. Attender: Darwin Giron MD [facility] Medical 11/10/2020 12:00:00 AM EDT [place] ([facility]) Alysa Diaz MD: [address], [facility] [place] [address], Ph. Attender: [facility] Medical 11/08/2020 12:00:00 AM EDT [place] ([facility]) Alysa Diaz MD: [address], [place] [address], Ph. Attender: [facility] Medical 11/08/2020 12:00:00 AM EDT [place] ([facility]) Alysa Diaz MD: [address], [facility] [place] [address], Ph. Attender: [facility] Medical 11/08/2020 12:00:00 AM EDT [place] ([facility]) Medications Medication Brand Name Start Date Product Form Dose Route Admi nistrative Instructions Pharmacy Instructions Status Indications Reaction Description Data Source(s) Sulfamethoxazole 800 MG / Trimethoprim 1 60 MG Oral Tablet [Bactrim] Bactrim DS 800-160 MG Bactrim DS 800-160 MG 02/23/2021 12:00:00 AM EDT 1.0 {table t} active Bactrim DS 800-160 MG eCW1 ( [facility]) Epclusa 400-100 MG Epclusa 400-100 MG 02/21/2021 12:00:00 AM EDT 1.0 {tablet} active Epclusa 400-100 MG e CW1 ([facility]) Epclusa 400-100 MG Epclusa 400-100 MG 02/21/2021 12:00:00 AM EDT 1.0 {tablet} active Epclusa 400-100 MG e CW1 ([facility]) Ondansetron 4 MG Oral Tablet ondansetron HCl 4 mg tablet TAKE 1-2 TABLETS BY MOUTH ONCE DAILY NEEDED ondansetron HCl 4 mg tablet TAKE 1-2 TAB LETS BY MOUTH ONCE DAILY NEEDED completed ondansetron 4 MG Oral Tablet JAYLA ([facility]) 24 HR Bupropion Hydrochloride 150 MG Ext ended Release Oral Tablet bupropion HCl XL 150 mg 24 hr tablet, extended release TAKE ONE TABLET BY MOUTH ONCE DAILY bupropion HCl XL 150 mg 24 hr tablet, extended release TAKE ONE TABLET BY MOUTH ONCE DAILY completed 24 HR bupropion hydrochloride 150 MG Extended Release Oral Tablet JAYLA ([facility]) Ondansetron 4 MG Oral Tablet ondansetron HCl 4 mg tablet TAKE 1-2 TABLETS BY MOUTH ONCE DAILY NEEDED ondansetron HCl 4 mg tablet TAKE 1-2 TAB LETS BY MOUTH ONCE DAILY NEEDED completed ondansetron 4 MG Oral Tablet JAYLA ([facility]) 24 HR Bupropion Hydrochloride 150 MG Ext ended Release Oral Tablet bupropion HCl XL 150 mg 24 hr tablet, extended release TAKE ONE TABLET BY MOUTH ONCE DAILY bupropion HCl XL 150 mg 24 hr tablet, extended release TAKE ONE TABLET BY MOUTH ONCE DAILY completed 24 HR bupropion hydrochloride 150 MG Extended Release Oral Tablet AJYLA ([facility]) Sulfamethoxazole 800 MG / Trimethoprim 1 60 MG Oral Tablet sulfamethoxazole 800 mg-trimethoprim 160 mg tablet TAKE ONE TABLET BY MOUTH TWICE DAILY FOR 14 DAYS sulfamethoxazole 800 mg-trimethoprim 160 mg tablet TAKE ONE TABLET BY MOUTH TWICE DAILY FOR 14 DAYS completed sulfamethoxazole 800 MG / trimethoprim 160 MG Oral Tablet JAYLA ([facility]) 24 HR Bupropion Hydrochloride 150 MG Ext ended Release Oral Tablet bupropion HCl XL 150 mg 24 hr tablet, extended release TAKE ONE TABLET BY MOUTH ONCE DAILY bupropion HCl XL 150 mg 24 hr tablet, extended release TAKE ONE TABLET BY MOUTH ONCE DAILY completed 24 HR bupropion hydrochloride 150 MG Extended Release Oral Tablet JAYLA ([facility]) Sulfamethoxazole 800 MG / Trimethoprim 1 60 MG Oral Tablet sulfamethoxazole 800 mg-trimethoprim 160 mg tablet TAKE ONE TABLET BY MOUTH TWICE DAILY FOR 14 DAYS sulfamethoxazole 800 mg-trimethoprim 160 mg tablet TAKE ONE TABLET BY MOUTH TWICE DAILY FOR 14 DAYS completed sulfamethoxazole 800 MG / trimethoprim 160 MG Oral Tablet JAYLA ([facility]) Ondansetron 4 MG Oral Tablet ondansetron HCl 4 mg tablet TAKE 1-2 TABLETS BY MOUTH ONCE DAILY NEEDED ondansetron HCl 4 mg tablet TAKE 1-2 TAB LETS BY MOUTH ONCE DAILY NEEDED completed ondansetron 4 MG Oral Tablet JAYLA ([facility]) Insurance Providers Payer name Policy type / Coverage type Policy ID Covered green party ID Covered green party's relationship to mckeon Policy Mckeon Plan Information [employer]ITY [employer]AN MCDO [id number] SP [id number] [employer] COMMUNITY PLAN MCDO [id number] SP [id number] UNHC COMMUNITY PLAN MCDO [id number] SP [id number] [facility] I [id number] Self [id number] MEDICAID [facility] [place] [id number] [facility] O [id number] S [id number] [employer] COMMUNITY PLAN MCDO [id number] SP [id number] [facility] COMMUNITY [facility]AN MCDO [id number] SP [id number] [facility] COMMUNITY PLAN MEDICAID [id number] MEDICAID [id number] SP [id number] SELF PAY UNAVAILABLE SP UNAVAILA BLE [facility] Health Maintenance Organization (HMO) [id number] Self [id number] [facility] MEDICAID [id number] S [id number] [employer] COMMUNITY PLAN MCDO [id number] SP [id number] [facility] COMMUNITY PLAN [id number] Problems, Conditions, and Diagnoses Code Display Name Description Problem Type Effective Dates Data Source(s) 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 [id number] Nicotine dependence Nicotine Dependence Problem 0 03/08[facility]21 [facility] I73.00 [id number] Raynaud's disease without gangrene Proble m 02/21/2021 12:00:00 AM EDT eCW1 ([facility]) F32.9 [id number] Depressive disorder Problem 02/21/2021 12:00 :00 AM EDT eCW1 ([facility]) F12.90 [id number] Marijuana use Problem 02/21/2021 12:00:00 AM EDT eCW1 ([facility]) F19.11 [id number] Intravenous drug abuse in remission Probl em 02/21/2021 12:00:00 AM EDT eCW1 ([facility]) M79.89 [id number] Bilateral hand swelling Problem 02/21/2021 1 2:00:00 AM EDT eCW1 ([facility]) M79.89 [id number] Bilateral swelling of feet Problem 12:00:00 AM EDT eCW1 ([facility]) B18.2 [id number] Chronic hepatitis C without hepatic coma Problem 12/13/2020 12:00:00 AM EDT eCW1 ([facility]) [id number] Vitamin D deficiency Vitamin D Deficiency Problem 12/05/2020 12:00:00 AM EDT [place]AY[place] ([facility]) [id number] Viral hepatitis C Viral Hepatitis C Problem 11/15/2020 12:00:00 AM EDT JAY[place] ([facility]) [id number] Raynaud's disease Raynaud's Disease Problem 11/08 12:00:00 AM EDT [place] ([facility] er) [id number] Raynaud's disease Raynaud's Disease Problem 11/08 12:00:00 AM EDT [place] ([facility] er) [id number] Type B viral hepatitis Type B Viral Hepatitis Problem 11/08/2020 12:00:00 AM EDT [place] ([facility]) [id number] Raynaud's disease Raynaud's Disease Problem 11/08 12:00:00 AM EDT [place] ([facility] er) 01984337 Type B viral hepatitis Type B Viral Hepatitis Problem 11/08/2020 12:00:00 AM EDT [place] ([facility] er) [id number] Skin lesion in drug addict Skin Lesion in Drug Addict Problem 11/07/2020 12:00:00 AM EDT [place] ([facility]) [id number] Addiction Addiction Problem 11/07/2020 12:00:00 AM ED T [place] ([facility]) [id number] Skin lesion in drug addict Skin Lesion in Drug Addict Problem 11/07/2020 12:00:00 AM EDT [place] ([facility]) [id number] Addiction Addiction Problem 11/07/2020 12:00:00 AM ED T [place] ([facility]) [id number] Skin lesion in drug addict Skin Lesion in Drug Addict Problem 11/07/2020 12:00:00 AM EDT [place] ([facility]) [id number] Addiction Addiction Problem 11/07/2020 12:00:00 AM ED T [place] ([facility]) Surgeries/Procedures No Information Results ID Date Data Source CBC with Auto Differential 02/21/2021 12:00:00 AM EDT W1 ( [facility]) Name Value Range Interpretation Code Description Data Christin rce(s) Supporting Document(s) 6.4 4.0-10.0 WHITE BLOOD COUNT eCW1 ([facility]) 14.4 12.0-15.5 HEMOGLOBIN eCW1 ([facility]) 4.75 4.00-5.40 RED BLOOD COUNT eCW1 ([facility]) 44.4 36.0-47.0 HEMATOCRIT eCW1 ([facility]) 93.5 80.0-96.0 MEAN CORPUSCULAR VOLUME e CW1 ([facility]) 30.3 27.0-33.0 MEAN CORPUSCULAR HEMOGLOB IN eCW1 ([facility]) 13.2 11.5-14.5 RED CELL DISTRIBUTION WID TH eCW1 ([facility]) 327 150-450 PLATELET COUNT, AUTOMATED eCW1 ([facility]) 32.4 32.0-36.5 MEAN CORPUSCULAR HGB CONC eCW1 ([facility]) 6.4 2.0-8.0 MONO % eCW1 ([facility]) 30.3 24.0-44.0 LYMPH % eCW1 ([facility]) 59.4 36.0-66.0 NEUTROPHILS % eCW1 ([facility]) 3.0 0.0-3.0 EOS % eCW1 ([facility]) 0.3 0-3.0 IMMATURE GRANULOCYTE % eCW1 ([facility]) 0.6 0.0-1.0 BASO % eCW1 ([facility]) 3.8 1.5-8.5 NEUTROPHILS # eCW1 ([facility]) 0.0 0-0 NUCLEATED RED BLOOD CELL % eCW 1 ([facility]) 1.9 1.5-5.0 LYMPH # eCW1 ([facility]) 0.0 0.0-0.2 BASO # eCW1 ([facility]) 0.4 0.0-0.8 MONO # eCW1 ([facility]) 0.2 0.0-0.5 EOS # eCW1 ([facility]) ID Date Data Source WOUND CULTURE AND GRAM ST 02/21/2021 12:00:00 AM EDT eCW1 ([facility]) Name Value Range Interpretation Code Description Data Christin rce(s) Supporting Document(s) WOUND CULTURE AND GRAM ST eCW1 ([facility]) ID Date Data Source ERYTHROCYTE SEDIMENTATION RATE 02/21/2021 12:00:00 AM EDT eC W1 ([facility]) Name Value Range Interpretation Code Description Data Christin rce(s) Supporting Document(s) 13 0-20 ERYTHROCYTE SEDIMENTATION RATE W1 ([facility]) ID Date Data Source [facility] Hand,(Pa\Lat) 02/21/2021 12:00:00 AM EDT eCW1 ([facility]) Name Value Range Interpretation Code Description Data Christin rce(s) Supporting Document(s) [facility] Hand,(Pa\Lat) eCW1 ([facility]) ID Date Data Source [facility] Foot, (Ap\Lat) 02/21/2021 12:00:00 AM EDT eCW1 ([facility]) Name Value Range Interpretation Code Description Data Christin rce(s) Supporting Document(s) [facility] Foot, (Ap\Lat) eCW1 ([facility]) ID Date Data Source RHEUMATOID FACTOR QUANT 02/21/2021 12:00:00 AM EDT eCW1 ([facility]) Name Value Range Interpretation Code Description Data Christin rce(s) Supporting Document(s) < 10.0 <15.0 RHEUMATOID FACTOR QUANT eCW1 ( [facility]) ID Date Data Source C REACTIVE PROTEIN QUANTITATIV (At [facility] Lab) 02/21/2021 12:00 :00 AM EDT eCW1 ([facility]) Name Value Range Interpretation Code Description Data Christin rce(s) Supporting Document(s) 0.82 0.00-0.30 C REACTIVE PROTEIN QUANTI TATIV eCW1 ([facility]) ID Date Data Source [id number] 11/10/2020 01:47:00 PM EDT [facility]) Name Value Range Interpretation Code Description Data Christin rce(s) Supporting Document(s) Reagin Ab [Presence] in Serum by RPR non-reactive non-reactive RPR (DX) W/refl Titer and Confirmatory Testing [facility]) ID Date Data Source [id number] 11/10/2020 01:47:00 PM EDT [facility]) Name Value Range Interpretation Code Description Data Christin rce(s) Supporting Document(s) Hemoglobin A1c/Hemoglobin.total in Blood 4.9 %_of_total_HGB <5.7 Hemoglobin a1C [facility]) ID Date Data Source [id number] 11/10/2020 01:47:00 PM EDT [facility]) Name Value Range Interpretation Code Description Data Christin rce(s) Supporting Document(s) Calcidiol [Mass/volume] in Serum or Plasma 19 NG/mL 30-100 Below low normal Vitamin D,25-Oh,total,ia [facility]) ID Date Data Source [id number] 11/10/2020 01:47:00 PM EDT [facility]) Name Value Range Interpretation Code Description Data Christin rce(s) Supporting Document(s) Thyrotropin [Units/volume] in Serum or Plasma 1.17 mIU/L Tsh [facility]) ID Date Data Source [id number] 11/10/2020 01:47:00 PM EDT [facility]) Name Value Range Interpretation Code Description Data Christin rce(s) Supporting Document(s) Hepatitis C virus RNA [log units/volume] (viral load) in Serum or Plasma by Probe and target amplification method 3.09 log_IU/mL not detected Ab ove high normal HCV RNA, Quantitative Real Time PCR [place] ([facility]) Hepatitis C virus RNA [Units/volume] (vi ral load) in Serum or Plasma by Probe and target amplification method 1230 IU/mL not detected Above high hortencia l HCV RNA, Quantitative Real Time PCR [place] ([facility]) comment Comment [place] ([facility]) ID Date Data Source [id number] 11/10/2020 01:47:00 PM EDT [facility]) Name Value Range Interpretation Code Description Data Christin rce(s) Supporting Document(s) Hepatitis C virus Ab [Presence] in Serum or Plasma by Immuno assay reactive non-reactive Abnormal (applies to non-numeric results) Hepatitis C Antibo dy [place] ([facility]) Hepatitis C virus Ab Signal/Cutoff in Serum or Plasma by Immunoa ssay <1.00 Above high normal Index [facility] er) ID Date Data Source [id number] 11/10/2020 01:47:00 PM EDT [place] ([facility]) Name Value Range Interpretation Code Description Data Christin rce(s) Supporting Document(s) Hepatitis B virus core Ab [Presence] in Serum or Plasm a by Immunoassay non-reactive non-reactive Hepatitis B Core Ab Total [place]AY[place] ([facility]) ID Date Data Source [id number] 11/10/2020 01:47:00 PM EDT [facility]) Name Value Range Interpretation Code Description Data Christin rce(s) Supporting Document(s) Hepatitis B virus surface Ag [Presence] in Serum or Pl asma by Immunoassay non-reactive non-reactive [facility]atitis [facility]igen [facility] ID Date Data Source [id number] 11/10/2020 01:47:00 PM EDT [place] ([facility]) Name Value Range Interpretation Code Description Data Christin rce(s) Supporting Document(s) Nuclear Ab [Presence] in Serum by Immunofluorescence negative n egative RICHARD Screen, Ifa [place] ([facility]) ID Date Data Source [id number] 11/10/2020 01:47:00 PM EDT [facility]) Name Value Range Interpretation Code Description Data Christin rce(s) Supporting Document(s) Hematocrit [Volume Fraction] of Blood by Automated count 44.2 % 35.0-45.0 Hematocrit JAYLA ([facility]) Erythrocytes [#/volume] in Blood by Automated count 4.81 million/uL 3.80-5.10 Red Blood Cell Count J[place] ([facility]) Hemoglobin [Mass/volume] in Blood 15.0 g/dL 11.7-15.5 He moglobin JAYLA ([facility]) Leukocytes [#/volume] in Blood by Automated count 7.3 thousand/uL 3 .8-10.8 White Blood Cell Count J[place] ([facility]) Platelets [#/volume] in Blood by Automated count 364 thousand/uL 14 0-400 Platelet Count J[place] ([facility]) Erythrocyte distribution width [Ratio] by Automated count 12.7 % 11.0-15.0 Rdw J[place] ([facility]) Erythrocyte mean corpuscular hemoglobin concentration [Mass/volume] by Automated count 33.9 g/dL 32.0-36.0 Mchc JAYLA ([facility]) Erythrocyte mean corpuscular hemoglobin [Entitic mass] by Automated count 31.2 pg 27.0-33.0 Mch [place] ([facility]) Erythrocyte mean corpuscular volume [Entitic volume] by Auto mated count 91.9 fL 80.0-100.0 Mcv [place] ([facility]) Platelet mean volume [Entitic volume] in Blood by Evan-Pamela 9.3 fL 7.5-12.5 Mpv [place] ([facility]) Eosinophils [#/volume] in Blood by Automated count 190 cells/uL 15- 500 Absolute Eosinophils [place] ([facility]) Monocytes [#/volume] in Blood by Automated count 511 cells/uL 200-9 50 Absolute Monocytes [place] ([facility]) Neutrophils [#/volume] in Blood by Automated count 4767 cells/uL 15 00-7800 Absolute Neutrophils [place] ([facility]) Basophils [#/volume] in Blood by Automated count 29 cells/uL 0-200 Absolute Basophils [place] ([facility]) Lymphocytes [#/volume] in Blood by Automated count 1803 cells/uL 85 0-3900 Absolute Lymphocytes [place] ([facility]) Basophils/100 leukocytes in Blood by Automated count 0.4 % 0-2 Basophils [place] ([facility]) Monocytes/100 leukocytes in Blood by Automated count 7.0 % 0-13 Monocytes JAY[place] ([facility]) Neutrophils/100 leukocytes in Blood by Automated count 65.3 % 38-80 Neutrophils J[place] ([facility]) Eosinophils/100 leukocytes in Blood by Automated count 2.6 % 0-8 Eosinophils J[place] ([facility]) Lymphocytes/100 leukocytes in Blood by Automated count 24.7 % 15-49 Lymphocytes JAY[place] ([facility]) ID Date Data Source [id number] 11/10/2020 01:47:00 PM EDT [place] ([facility]) Name Value Range Interpretation Code Description Data Christin rce(s) Supporting Document(s) Creatinine [Mass/volume] in Serum or Plasma 0.66 mg/dL 0.50-1.10 Creatinine JAYLA ([facility]) Glucose [Mass/volume] in Serum or Plasma 103 mg/dL 65-99 Above high normal Glucose J[place] ([facility]) Urea nitrogen [Mass/volume] in Serum or Plasma 13 mg/dL 7-25 Urea Nitrogen (BUN) [place] ([facility]) Glomerular filtration rate/1.73 sq M.pre dicted among blacks [Volume Rate/Area] in Serum, Plasma or Blood by Creatinine-based formula (CKD-EPI) 132 mL/min/1.73m2 > or = 60 eGFR JAYLA ([facility]) Sodium [Moles/volume] in Serum or Plasma 139 mmol/L 135-146 Sodium J[place] ([facility]) Glomerular filtration rate/1.73 sq M.pre dicted among non-blacks [Volume Rate/Area] in Serum, Plasma or Blood by Creatinine-based formula (CKD-EPI) 114 mL/min/1.73m2 > or = 60 eGFR Non-afr. French JAYLA ([facility]) Urea nitrogen/Creatinine [Mass Ratio] in Serum or Plasma not applic able 6-22 BUN/creatinine Ratio J[place] ([facility]) Potassium [Moles/volume] in Serum or Plasma 4.6 mmol/L 3.5-5.3 Potassium J[place] ([facility]) Carbon dioxide, total [Moles/volume] in Serum or Plasma 28 mmol/L 20-32 Carbon Dioxide JAY[place] ([facility]) Chloride [Moles/volume] in Serum or Plasma 105 mmol/L 98-110 Chloride JAY[place] ([facility]) Calcium [Mass/volume] in Serum or Plasma 9.2 mg/dL 8.6-10.2 Calcium J[place] ([facility]) Albumin [Mass/volume] in Serum or Plasma 4.1 g/dL 3.6-5.1 Albumin J[place] ([facility]) Protein [Mass/volume] in Serum or Plasma 7.4 g/dL 6.1-8.1 Protein, Total [place] ([facility]) Albumin/Globulin [Mass Ratio] in Serum or Plasma 1.2 (calc) 1.0-2 .5 Albumin/globulin Ratio JAY[place] ([facility]) Globulin [Mass/volume] in Serum by calculation 3.3 g/dL_(calc) 1.9- 3.7 Globulin JAYLA ([facility]) Alkaline phosphatase [Enzymatic activity/volume] in Serum or Plasma 60 U/L 31-125 Alkaline Phosphatase JAYLA ([facility]) Alanine aminotransferase [Enzymatic activity/volume] in Seru m or Plasma 12 U/L 6-29 Alt [place] ([facility]) Bilirubin.total [Mass/volume] in Serum or Plasma 0.3 mg/dL 0.2-1 .2 Bilirubin, Total [place] ([facility]) Aspartate aminotransferase [Enzymatic activity/volume] in Serum or Plasma 13 U/L 10-30 Ast [place] ([facility]) ID Date Data Source [id number] 11/10/2020 01:47:00 PM EDT [facility]) Name Value Range Interpretation Code Description Data Christin rce(s) Supporting Document(s) HIV 1+2 Ab+HIV1 p24 Ag [Presence] in Serum or Plasma b y Immunoassay non-reactive non-reactive HIV Ag/Ab, 4TH Gen [facility]) ID Date Data Source [id number] 11/10/2020 01:47:00 PM EDT [facility]) Name Value Range Interpretation Code Description Data Christin rce(s) Supporting Document(s) Cholesterol [Mass/volume] in Serum or Plasma 146 mg/dL <200 Cholesterol, Total [place] ([facility]) Triglyceride [Mass/volume] in Serum or Plasma 139 mg/dL <150 Triglycerides [place] ([facility]) Cholesterol in LDL [Mass/volume] in Serum or Plasma by calculation 89 mg/dL_(calc) LDL-cholesterol [place] ([facility]) Cholesterol in HDL [Mass/volume] in Serum or Plasma 33 mg/dL > or = 50 Below low normal HDL Cholesterol JAYLA ([facility]) Cholesterol.total/Cholesterol in HDL [Mass Ratio] in Serum o r Plasma 4.4 (calc) <5.0 Chol/hdlc Ratio JAYLA ([facility]) Cholesterol non HDL [Mass/volume] in Serum or Plasma 113 mg/dL_(johnnie c) <130 Non HDL Cholesterol JAYLA ([facility]) Procedure Social History Code Duration Value Status Description Data Source(s ) Smoking 02/21/2021 12:00:00 AM EDT Current Smoker completed Curre nt Smoker eCW1 ([facility]) Smoking 02/21/2021 12:00:00 AM EDT Current Smoker completed Curre nt Smoker eCW1 ([facility]) Smoking 12/06/2020 12:00:00 AM EDT Current Smoker completed Curre nt Smoker eCW1 ([facility]) Smoking 12/06/2020 12:00:00 AM EDT Current Smoker completed Curre nt Smoker eCW1 ([facility]) Smoking 12/06/2020 12:00:00 AM EDT Current Smoker completed Curre nt Smoker eCW1 ([facility]) Vital Signs ID Date Data Source UNK Name Value Range Interpretation Code Description Data Source(s) Body weight 156 [lb_av] 156 [lb_av] eCW1 ([facility]) Body weight 70.76 kg 70.76 kg eCW1 ([facility]) Body height 64 [in_i] 64 [in_i] eCW1 ([facility]) Body mass index (BMI) [Ratio] 26.77 kg/m2 26.77 kg/m2 eCW1 ([facility]) Heart rate 82 /min 82 /min eCW1 ([facility]) Respiratory rate 18 /min 18 /min eCW1 ([facility]) Body temperature 97.8 [degF] 97.8 [degF] eCW1 ( [facility]) Systolic blood pressure 122 mm[Hg] 122 mm[Hg] e CW1 ([facility]) Diastolic blood pressure 74 mm[Hg] 74 mm[Hg] eCW1 ([facility]) Body height 64 [in_i] 64 [in_i] JAYLA ([facility]) Body height 64 [in_i] 64 [in_i] JAYLA ([facility]) Diastolic blood pressure 73 mm[Hg] 73 mm[Hg] JAYLA ([facility]) Body height 64 [in_i] 64 [in_i] JAYLA ([facility]) Body mass index (BMI) [Ratio] 27.4 kg/m2 27.4 k g/m2 JAYLA ([facility]) Systolic blood pressure 106 mm[Hg] 106 mm[Hg] A TARUN ([facility]) Body weight 2553.6 [oz_av] 2553.6 [oz_av] ATHEN A ([facility]) Diastolic blood pressure 73 mm[Hg] 73 mm[Hg] JAYLA ([facility]) Body height 64 [in_i] 64 [in_i] JAYLA ([facility]) Body mass index (BMI) [Ratio] 27.4 kg/m2 27.4 k g/m2 JAYLA ([facility]) Systolic blood pressure 106 mm[Hg] 106 mm[Hg] A TARUN ([facility]) Body weight 2553.6 [oz_av] 2553.6 [oz_av] ATHEN A ([facility]) Diastolic blood pressure 73 mm[Hg] 73 mm[Hg] JAYLA ([facility]) Body height 64 [in_i] 64 [in_i] JAYLA ([facility]) Body mass index (BMI) [Ratio] 27.4 kg/m2 27.4 k g/m2 JAYLA ([facility]) Systolic blood pressure 106 mm[Hg] 106 mm[Hg] A TARUN ([facility]) Body weight 2553.6 [oz_av] 2553.6 [oz_av] ATHEN A ([facility]) Patient Treatment Plan of Care Planned Activity Planned Date Details Description Data Source (s) Sulfamethoxazole 800 MG / Trimethoprim 160 MG Oral Tab let [Bactrim] 02/23/2021 12:00:00 AM EDT eCW1 ([facility]) Epclusa 400-100 MG 02/21/2021 12:00:00 AM EDT eCW1 ([facility]) Epclusa 400-100 MG 02/21/2021 12:00:00 AM EDT eCW1 ([facility]) Ondansetron 4 MG Oral Tablet JAYLA ([facility]) 24 HR Bupropion Hydrochloride 150 MG Extended Release Oral Tablet JAYLA ([facility]) Sulfamethoxazole 800 MG / Trimethoprim 160 MG Oral Tablet JAYLA ([facility]) Ondansetron 4 MG Oral Tablet JAYLA ([facility]) 24 HR Bupropion Hydrochloride 150 MG Extended Release Oral Tablet JAYLA ([facility]) Sulfamethoxazole 800 MG / Trimethoprim 160 MG Oral Tablet JAYLA ([facility]) Ondansetron 4 MG Oral Tablet JAYLA ([facility]) 24 HR Bupropion Hydrochloride 150 MG Extended Release Oral Tablet JAYLA ([facility])
[2021-05-03 16:41] LABS: BASO % 0.4 % (0.0-1.0); EOS # 0.1 10^3/uL (0.0-0.5); EOS % 1.1 % (0.0-3.0); HEMATOCRIT 42.1 % (36.0-47.0); HEMOGLOBIN 13.3 g/dl (12.0-15.5); LYMPH % 17.7 % (24.0-44.0); MEAN CORPUSCULAR HEMOGLOBIN 29.6 pg (27.0-33.0); MEAN CORPUSCULAR HGB CONC 31.6 g/dl (32.0-36.5); MEAN CORPUSCULAR VOLUME 93.8 fl (80.0-96.0); MONO # 0.7 10^3/uL (0.0-0.8); MONO % 5.9 % (2.0-8.0); NEUTROPHILS # 8.4 10^3/uL (1.5-8.5); NEUTROPHILS % 74.5 % (36.0-66.0); PLATELET COUNT, AUTOMATED 375 10^3/uL (150-450); RED BLOOD COUNT 4.49 10^6/uL (4.00-5.40); WHITE BLOOD COUNT 11.3 10^3/uL (4.0-10.0)
[2021-05-03 16:53] LABS: BLOOD UREA NITROGEN 5 MG/DL (7-18); C REACTIVE PROTEIN QUANTITATIV 8.06 MG/DL (0.00-0.30); CALCIUM LEVEL 9.1 MG/DL (8.5-10.1); CARBON DIOXIDE LEVEL 30 MEQ/L (21-32); CHLORIDE LEVEL 103 MEQ/L (98-107); CREATININE FOR GFR 0.68 MG/DL (0.55-1.30); GLOMERULAR FILTRATION RATE > 60.0 (>60); GLUCOSE, FASTING 98 MG/DL (70-100); POTASSIUM SERUM 4.3 MEQ/L (3.5-5.1); SODIUM LEVEL 138 MEQ/L (136-145)
[2021-05-03 17:23] LABS: AMPHETAMINES LEVEL URINE NEGATIVE (NEGATIVE); BARBITURATES URINE NEGATIVE (NEGATIVE); BENZODIAZEPINES URINE NEGATIVE (NEGATIVE); CANNABINOIDS URINE POSITIVE (NEGATIVE); COCAINE METABOLITE URINE NEGATIVE (NEGATIVE); METHADONE URINE NEGATIVE (NEGATIVE); OPIATES URINE NEGATIVE (NEGATIVE); PHENCYCLIDINE URINE NEGATIVE (NEGATIVE)
[2021-05-03] MEDS ORDERED: VANCOMYCIN HCL 500 MG in D5W MINI-BAG PLUS 100 ML IV ONE (17:30)
--- NOTE | 2021-05-03 17:35 | REP ---
INDICATION: bilat excoriation to 1st toe and 2nd COMPARISON: None. TECHNIQUE: AP, lateral, bilateral oblique views right and left foot. FINDINGS: The osseous structures and joint spaces are intact, symmetric bilaterally and normal. There is no evidence for acute fracture or dislocation. Surrounding soft tissues are unremarkable. No subcutaneous emphysema or radiodense foreign body. IMPRESSION: Symmetric normal bilateral foot radiographs. <Electronically signed by Heber Rey > 05/03/21 [id number]
[2021-05-03 17:38] LABS: ERYTHROCYTE SEDIMENTATION RATE 59 mm/hr (0-20)
== END 2021-05-03 18:53 | disposition left against medical advice (07) ==
LOC: M ED 11:36
DX: R22.43 Localized swelling, mass and lump, lower limb, bilateral (principal); R05.9 Cough, unspecified; Z53.9 Procedure and treatment not carried out, unspecified reason; I73.00 Raynaud's syndrome without gangrene; K73.9 Chronic hepatitis, unspecified; F41.9 Anxiety disorder, unspecified; F32.A Depression, unspecified; F19.10 Other psychoactive substance abuse, uncomplicated; F17.200 Nicotine dependence, unspecified, uncomplicated; Z88.6 Allergy status to analgesic agent; Z79.899 Other long term (current) drug therapy
CPT/HCPCS: 73630; 80048; 80307; 83605; 84702; 85025; 85652; 86140; 87040; 87631; 96365; 96366; 99283; J3370

== ENCOUNTER → 2023-07-30 | Outpatient (CLI) | payer OTHER ==
[~2023-07-30] MED LIST changes: +AMIT25TA19; -CEFD1CAP8; +CEFD1CAP9; +GABA600T4
[2023-07-30 11:56] LABS: HEMATOCRIT 40.2 % (36.0-47.0); HEMOGLOBIN 13.2 g/dl (12.0-15.5); MEAN CORPUSCULAR HEMOGLOBIN 32.4 pg (27.0-33.0); MEAN CORPUSCULAR HGB CONC 32.8 g/dl (32.0-36.5); MEAN CORPUSCULAR VOLUME 98.8 fl (80.0-96.0); PLATELET COUNT, AUTOMATED 275 10^3/uL (150-450); RED BLOOD COUNT 4.07 10^6/uL (4.00-5.40); WHITE BLOOD COUNT 5.2 10^3/uL (4.0-10.0)
[2023-07-30 12:22] LABS: ALBUMIN 3.8 G/DL (3.2-5.2); ALKALINE PHOSPHATASE 58 U/L (46-116); ALT/SGPT 23 U/L (7.0-40); AST/SGOT 17 U/L (<34); BILIRUBIN,TOTAL 0.2 MG/DL (0.3-1.2); BLOOD UREA NITROGEN 14 MG/DL (9-23); CALCIUM LEVEL 8.9 MG/DL (8.5-10.1); CARBON DIOXIDE LEVEL 27 MMOL/L (20-31); CHLORIDE LEVEL 105 MMOL/L (98-107); CREATININE FOR GFR 0.72 MG/DL (0.55-1.30); GLOMERULAR FILTRATION RATE > 60.0 (>60); GLUCOSE, FASTING 129 MG/DL (60-100); POTASSIUM SERUM 4.4 MMOL/L (3.5-5.1); SODIUM LEVEL 137 MMOL/L (136-145); TOTAL PROTEIN 7.1 G/DL (5.7-8.2)
[2023-07-30 12:35] LABS: HCG, SERUM QUALITATIVE NEGATIVE (NEGATIVE)
[2023-07-30 13:40] LABS: CHLAMYDIA DNA AMPLIFICATION NEGATIVE (NEGATIVE); GC DNA AMPLIFICATION NEGATIVE (NEGATIVE)
[2023-07-30 18:35] LABS: HIV 1&2 SCREEN NEGATIVE (NEGATIVE)
[2023-07-30 18:37] LABS: HEPATITIS C VIRUS ABY INDEX > 11.00 INDEX (<0.8)
== END ==
LOC: M LAB 11:11
PROVIDERS: ATTEND Family Medicine
DX: F11.20 Opioid dependence, uncomplicated (principal)

== ENCOUNTER 2024-04-29 21:11 | Emergency (ER) | payer OTHER ==
[~2024-04-29] VITALS: Ht 162.6 cm; Wt 88.0 kg
[~2024-04-29 21:11] MED LIST changes: +BUPR-597; -BUPR300T92; +GABA-1490; -GABA600T4
[2024-04-30] MEDS: KETOROLAC 30 MG/ML 1ML VIAL IV ONE (00:53)
[2024-04-30 01:01] LABS: BASO % 0.3 % (0.0-1.0); EOS # 0.3 10^3/uL (0.0-0.5); EOS % 3.4 % (0.0-3.0); HEMATOCRIT 43.6 % (36.0-47.0); HEMOGLOBIN 14.1 g/dl (12.0-15.5); LYMPH # 2.3 10^3/uL (1.5-5.0); LYMPH % 31.3 % (24.0-44.0); MEAN CORPUSCULAR HGB CONC 32.3 g/dl (32.0-36.5); MEAN CORPUSCULAR VOLUME 98.9 fl (80.0-96.0); MONO # 0.4 10^3/uL (0.0-0.8); NEUTROPHILS # 4.3 10^3/uL (1.5-8.5); NEUTROPHILS % 58.9 % (36.0-66.0); PLATELET COUNT, AUTOMATED 280 10^3/uL (150-450); RED BLOOD COUNT 4.41 10^6/uL (4.00-5.40); WHITE BLOOD COUNT 7.4 10^3/uL (4.0-10.0)
[2024-04-30 01:30] LABS: BLOOD UREA NITROGEN 13 MG/DL (9-23); CALCIUM LEVEL 9.3 MG/DL (8.5-10.1); CARBON DIOXIDE LEVEL 32 MMOL/L (20-31); CHLORIDE LEVEL 106 MMOL/L (98-107); CREATININE FOR GFR 0.62 MG/DL (0.55-1.30); GLOMERULAR FILTRATION RATE > 60.0 (>60); GLUCOSE, FASTING 80 MG/DL (60-100); POTASSIUM SERUM 4.2 MMOL/L (3.5-5.1); SODIUM LEVEL 139 MMOL/L (136-145)
[2024-04-30] MEDS: VANCOMYCIN/WATER FOR INJ (PEG) 1,750 MG in IV 1 EA IV ONE (02:11)
[2024-04-30 02:51] LABS: ERYTHROCYTE SEDIMENTATION RATE 40 mm/hr (0-20)
[2024-04-30] MEDS ORDERED: HOME MED LIST COMPLETE! XX SCH ×2 (08:10→09:10)
[2024-04-30] MEDS ORDERED: METH10CO3 PO (09:09)
[2024-04-30] MEDS: NS 1,000 ML IV SCH (09:19)
[2024-04-30] MEDS: METHADONE 10MG TAB PO ONE (09:50)
[2024-04-30] MEDS: DALBAVANCIN 1,500 MG in D5W 250 ML IV ONE (10:42)
[2024-04-30 10:55] VITALS: BP 143/93; TEMP 97.8; O2SAT 96
== END 2024-04-30 11:42 | disposition left against medical advice (07) ==
LOC: M ED 21:11
DX: L97.519 Non-pressure chronic ulcer of other part of right foot with unspecified severity (principal); A49.02 Methicillin resistant Staphylococcus aureus infection, unspecified site; F17.200 Nicotine dependence, unspecified, uncomplicated; F12.10 Cannabis abuse, uncomplicated; Z79.899 Other long term (current) drug therapy; Z88.5 Allergy status to narcotic agent; Z53.9 Procedure and treatment not carried out, unspecified reason
CPT/HCPCS: 73630; 80048; 83605; 85025; 85652; 86140; 87040; 87070; 87077; 87186; 87205; 96365; 96366; 96367; 96375; 99284; J0875; J1885; J3372; S0109

== ENCOUNTER → 2024-07-08 | Outpatient (CLI) | payer OTHER ==
[~2024-07-08] MED LIST changes: +METH10CO3 PO
== END ==
LOC: M CARPUL 15:19
PROVIDERS: ATTEND Student in an Organized Health Care Education/Training Program
DX: F19.11 Other psychoactive substance abuse, in remission (principal)